=== PATIENT | female | born 1960 | race Caucasian/White ===

== ENCOUNTER 2017-07-03 05:56 | Emergency (ER) | payer MEDICAID ==
[~2017-07-03] VITALS: Ht 165.1 cm; Wt 51.3 kg
[~2017-07-03 05:56] MED LIST: ALBU8HFA PO; CLON-527 PO; CLON1TAB4 PO; DULO-31 PO; EPIN0.3P8 IM; FURO-150 PO; HYDR-3972 PO; HYDR-565 PO; IBUP-1984 PO; IBUP-1985 PO; LISI2.5T2 PO; POTA10TA36 PO; PRE5T PO; TRAZ-143 PO
[2017-07-03] MEDS ORDERED: HYDR-565 PO (06:16)
[2017-07-03] MEDS ORDERED: HYDROcodone/acetaminophen 10/325mg tab PO ONE (06:25)
[2017-07-03 06:30] VITALS: BP 118/85
== END 2017-07-03 06:40 | disposition home or self-care (01) ==
LOC: ER 05:58
DX: Z76.0 Encounter for issue of repeat prescription (principal); Z88.1 Allergy status to other antibiotic agents; Z88.8 Allergy status to other drugs, medicaments and biological substances; Z79.899 Other long term (current) drug therapy; I25.10 Atherosclerotic heart disease of native coronary artery without angina pectoris; I25.2 Old myocardial infarction; G89.29 Other chronic pain; Z59.0 Homelessness; Z56.0 Unemployment, unspecified
CPT/HCPCS: 99283

== ENCOUNTER 2017-07-29 07:22 | Emergency (ER) | payer MEDICAID ==
[~2017-07-29] VITALS: Ht 165.1 cm; Wt 53.6 kg
[2017-07-29] MEDS ORDERED: ONDA4TAB9 PO (08:09)
[2017-07-29] MEDS ORDERED: HYDR-3965 PO (08:09)
[2017-07-29] MEDS ORDERED: dexamethasone 4mg tablet PO ONE (08:10)
[2017-07-29 08:36] VITALS: BP 136/76
== END 2017-07-29 08:43 | disposition home or self-care (01) ==
LOC: ER 07:22
DX: G89.29 Other chronic pain (principal); M32.9 Systemic lupus erythematosus, unspecified; G35 Multiple sclerosis; I25.10 Atherosclerotic heart disease of native coronary artery without angina pectoris; I25.2 Old myocardial infarction; Z59.0 Homelessness; Z56.0 Unemployment, unspecified; Z98.890 Other specified postprocedural states; Z79.899 Other long term (current) drug therapy; Z88.1 Allergy status to other antibiotic agents; Z88.8 Allergy status to other drugs, medicaments and biological substances
CPT/HCPCS: 99283; J8540

== ENCOUNTER 2017-08-22 10:38 | Emergency (ER) | payer MEDICAID ==
[~2017-08-22] VITALS: Ht 165.1 cm; Wt 53.6 kg
[~2017-08-22 10:38] MED LIST changes: +HYDR-3965 PO; +ONDA4TAB9 PO
[2017-08-22 11:00] VITALS: BP 111/57
[2017-08-22] MEDS ORDERED: HYDROcodone/acetaminophen 10/325mg tab PO ONE (12:20)
[2017-08-22] MEDS ORDERED: triamcinolone acetonide 40mg/ml inj IM ONE (12:20)
[2017-08-22] MEDS ORDERED: GABA-532 PO (12:23)
== END 2017-08-22 12:44 | disposition home or self-care (01) ==
LOC: ER 10:39
DX: G89.4 Chronic pain syndrome (principal); I25.10 Atherosclerotic heart disease of native coronary artery without angina pectoris; I25.2 Old myocardial infarction; M32.9 Systemic lupus erythematosus, unspecified; Z59.0 Homelessness; Z56.0 Unemployment, unspecified; Z79.899 Other long term (current) drug therapy
CPT/HCPCS: 96372; 99283; J3301

== ENCOUNTER 2017-09-07 19:03 | Emergency (ER) | payer MEDICAID ==
[~2017-09-07] VITALS: Ht 165.1 cm; Wt 52.6 kg
[~2017-09-07 19:03] MED LIST changes: +GABA-532 PO; -HYDR-3965 PO; -ONDA4TAB9 PO
[2017-09-07 19:19] VITALS: BP 163/79
== END 2017-09-08 00:53 | disposition left against medical advice (07) ==
LOC: ER 19:04
DX: R22.0 Localized swelling, mass and lump, head (principal); Z53.21 Procedure and treatment not carried out due to patient leaving prior to being seen by health care provider

== ENCOUNTER 2017-09-15 13:15 | Emergency (ER) | payer MEDICAID ==
[~2017-09-15] VITALS: Ht 160 cm; Wt 50.6 kg
[2017-09-15 13:43] VITALS: BP 123/73
[2017-09-15 14:45] LABS: CLARITY,URINE SLIGHTLY CLOUDY (Clear); COLOR,URINE YELLOW (Yellow); GLUCOSE, URINE NEGATIVE (Neg); KETONES,URINE NEGATIVE (Neg); LEUKOCYTE ESTERASE ,URINE NEGATIVE (Neg); NITRITES, URINE NEGATIVE (Neg); OCCULT BLOOD,URINE NEGATIVE (Neg); PROTEIN,URINE NEGATIVE (Neg); UROBILINOGEN,URINE 0.2 E.U/dL (0.2-1.0)
[2017-09-15 14:53] LABS: UA COLLECTION TYPE CLN CATCH MIDSTREAM
[2017-09-15 14:59] LABS: MUCUS STRANDS NONE SEEN /LPF (Neg); SQUAMOUS EPITHELIAL CELL,UR MODERATE /LPF (FEW)
[2017-09-15 15:00] LABS: BACTERIA,URINE FEW /HPF (Neg); HYALINE CASTS 0-3 /LPF (NEGATIVE); RBC,URINE 0-2 /HPF (0-2); WBC,URINE 0-4 /HPF (0-4)
[2017-09-15 15:43] LABS: BASOPHILS % (AUTO) 0 % (0-1); EOSINOPHILS # (AUTO) 0.2 X10'3 (0-0.9); EOSINOPHILS % (AUTO) 2.1 % (0-6); HEMATOCRIT 38.8 % (35.0-45.0); HEMOGLOBIN 12.9 g/dl (12.0-16.0); LYMPHOCYTES # (AUTO) 0.7 X10'3 (1.1-4.8); LYMPHOCYTES % (AUTO) 8.7 % (21-51); MEAN CORPUSCULAR HEMOGLOBIN 26.6 PG (27.0-31.0); MEAN CORPUSCULAR HGB CONC 33.4 % (33.0-36.5); MEAN CORPUSCULAR VOLUME 79.7 FL (78-98); MEAN PLATELET VOLUME 8.6 FL (7.4-10.4); MONOCYTES # (AUTO) 0.3 X10'3 (0-0.9); MONOCYTES % (AUTO) 3.5 % (2-12); NEUTROPHILS # (AUTO) 6.7 X10'3 (1.8-7.7); NEUTROPHILS % (AUTO) 85.7 % (42-75); PLATELET COUNT 293 X10'3 (140-440); RED BLOOD COUNT 4.87 X10'6 (4.20-5.60); RED CELL DISTRIBUTION WIDTH 22.2 % (11.5-14.5); WHITE BLOOD COUNT 7.8 X10'3 (4.5-11.0)
[2017-09-15 15:58] LABS: ALANINE AMINOTRANSFERASE 14 U/L (12-78); ALBUMIN 3.9 G/DL (3.4-5.0); ALBUMIN/GLOBULIN RATIO 0.9 (1.1-1.5); ALKALINE PHOSPHATASE 88 IU/L (46-116); ANION GAP 12 (8-16); ASPARTATE AMINO TRANSFERASE 11 U/L (10-37); BILIRUBIN,TOTAL 0.2 MG/DL (0.1-1.0); BLOOD UREA NITROGEN 26 MG/DL (7-18); BUN/CREATININE RATIO 38.2 (6.6-38.0); CALCIUM 9.3 MG/DL (8.5-10.1); CHLORIDE 101 MMOL/L (99-107); CREATININE 0.68 MG/DL (0.40-0.90); GLUCOSE 151 MG/DL (70-104); POTASSIUM 3.9 MMOL/L (3.5-5.1); SODIUM 139 MMOL/L (135-145); TOTAL CARBON DIOXIDE 26.1 MMOL/L (24-32); TOTAL PROTEIN 8.3 G/DL (6.4-8.2); eGFR 90 ML/MIN
== END 2017-09-15 16:15 | disposition home or self-care (01) ==
LOC: ER 13:15
DX: R53.1 Weakness (principal); R59.9 Enlarged lymph nodes, unspecified; I25.10 Atherosclerotic heart disease of native coronary artery without angina pectoris; I25.2 Old myocardial infarction; G89.29 Other chronic pain; Z59.0 Homelessness; Z56.0 Unemployment, unspecified; Z88.8 Allergy status to other drugs, medicaments and biological substances; Z79.899 Other long term (current) drug therapy
CPT/HCPCS: 36415; 80053; 81001; 85025; 99284

== ENCOUNTER 2017-12-12 08:13 | Inpatient (IN) | payer MEDICAID ==
[~2017-12-12] VITALS: Ht 165.1 cm; Wt 52.3 kg
[~2017-12-12 08:13] MED LIST changes: -CLON1TAB4 PO; +DIPH25CA46 PO; -FURO-150 PO; -GABA-532 PO; +HYDR-3964 PO; -HYDR-3972 PO; +HYDR-3973 PO; -HYDR-565 PO; -IBUP-1984 PO; -IBUP-1985 PO; -LISI2.5T2 PO; +ONDA4TAB11 PO; -PRE5T PO; +PROP40TA72 PO; -TRAZ-143 PO
[2017-12-12 09:06] LABS: BASOPHILS % (AUTO) 0.8 % (0-1); EOSINOPHILS # (AUTO) 0.1 X10'3 (0-0.9); EOSINOPHILS % (AUTO) 3.4 % (0-6); HEMATOCRIT 37.3 % (35.0-45.0); HEMOGLOBIN 12.4 g/dl (12.0-16.0); LYMPHOCYTES # (AUTO) 0.4 X10'3 (1.1-4.8); LYMPHOCYTES % (AUTO) 9.4 % (21-51); MEAN CORPUSCULAR HEMOGLOBIN 27.6 PG (27.0-31.0); MEAN CORPUSCULAR HGB CONC 33.3 % (33.0-36.5); MEAN CORPUSCULAR VOLUME 83.1 FL (78-98); MEAN PLATELET VOLUME 8.3 FL (7.4-10.4); MONOCYTES # (AUTO) 0.4 X10'3 (0-0.9); MONOCYTES % (AUTO) 9.6 % (2-12); NEUTROPHILS # (AUTO) 3.3 X10'3 (1.8-7.7); NEUTROPHILS % (AUTO) 76.8 % (42-75); PLATELET COUNT 320 X10'3 (140-440); RED BLOOD COUNT 4.49 X10'6 (4.20-5.60); WHITE BLOOD COUNT 4.3 X10'3 (4.5-11.0)
[2017-12-12 09:16] LABS: PARTIAL THROMBOPLASTIN TIME 29 SECONDS (22-32); PROTHROMBIN TIME 10.7 SECONDS (9.0-12.0)
[2017-12-12] MEDS ORDERED: normal saline 1000ML IV soln IV ONE (09:25)
[2017-12-12] MEDS ORDERED: CefTRIAXone 2gm/D5W 50ml 50 ML IV ONE (09:25)
[2017-12-12] MEDS ORDERED: azithromycin 250mg tablet PO ONE (09:25)
[2017-12-12 09:27] LABS: ALANINE AMINOTRANSFERASE 12 U/L (12-78); ALBUMIN 3.4 G/DL (3.4-5.0); ALBUMIN/GLOBULIN RATIO 0.7 (1.1-1.5); ALKALINE PHOSPHATASE 67 IU/L (46-116); ANION GAP 14 (8-16); ASPARTATE AMINO TRANSFERASE 14 U/L (10-37); BILIRUBIN,TOTAL 0.3 MG/DL (0.1-1.0); BLOOD UREA NITROGEN 11 MG/DL (7-18); BUN/CREATININE RATIO 14.5 (6.6-38.0); CALCIUM 9.2 MG/DL (8.5-10.1); CHLORIDE 102 MMOL/L (99-107); CREATININE 0.76 MG/DL (0.40-0.90); GLUCOSE 81 MG/DL (70-104); POTASSIUM 2.9 MMOL/L (3.5-5.1); SODIUM 142 MMOL/L (135-145); TOTAL PROTEIN 8.4 G/DL (6.4-8.2); eGFR 79 ML/MIN
[2017-12-12] MEDS ORDERED: LISI-600 PO (11:07)
[2017-12-12] MEDS ORDERED: TRAZ-143 PO (11:08)
[2017-12-12] MEDS ORDERED: ondansetron 4mg rapidly disintigrating tab PO PRN (11:30)
[2017-12-12] MEDS ORDERED: metoclopramide 5 mg/ml inj IV PRN (11:35)
[2017-12-12] MEDS ORDERED: potassium Cl 40MEQ/NS 500ml 500 ML IV PRN ×2 (11:35)
[2017-12-12] MEDS ORDERED: acetaminophen 650mg rectal suppository RC PRN (11:35)
[2017-12-12] MEDS ORDERED: mag hydrox/Alum hydrox/simeth 30ml oral suspension PO PRN (11:35)
[2017-12-12] MEDS ORDERED: magnesium hydroxide 30ml (MOM) UD suspension PO PRN (11:35)
[2017-12-12] MEDS ORDERED: ondansetron/PF 4mg/2ml inj IV PRN (11:35)
[2017-12-12] MEDS ORDERED: morphine 4 MG/ML inj SYRINge IV PRN ×2 (11:35)
[2017-12-12] MEDS ORDERED: HYDROmorphone inj. 0.5 MG/0.5 ML DISP.SYRIN IV PRN ×2 (11:35)
[2017-12-12] MEDS ORDERED: diphenhydrAMINE 50 mg/ml inj IV PRN (11:35)
[2017-12-12] MEDS ORDERED: potassium Cl 20 mEq SR tablet PO PRN (11:35)
[2017-12-12] MEDS ORDERED: HYDROcodone/acetaminophen 5mg/325mg tablet PO PRN (11:35)
[2017-12-12] MEDS ORDERED: acetaminophen 325mg tablet PO PRN (11:35)
[2017-12-12] MEDS ORDERED: diphenhydrAMINE 25mg capsule PO PRN (11:35)
[2017-12-12] MEDS: HYDROcodone/acetaminophen 10/325mg tab PO PRN ×3 (11:56→20:10)
[2017-12-12] MEDS: potassium Cl 20 mEq SR tablet PO PRN ×3 (11:57→20:10)
[2017-12-12] MEDS: normal saline 1000ml 1,000 ML IV SCH (12:10)
[2017-12-12 12:12] LABS: PHOSPHORUS 3.6 MG/DL (2.3-4.5)
[2017-12-12 12:19] LABS: URINE AMPHETAMINE SCREEN NEGATIVE (Neg); URINE BARBITUATE SCREEN NEGATIVE (Neg); URINE BENZODIAZEPINES SCREEN NEGATIVE (Neg); URINE CANNABINOID SCREEN NEGATIVE (Neg); URINE COCAINE SCREEN NEGATIVE (Neg); URINE METHADONE SCREEN NEGATIVE (Neg); URINE OPIATE SCREEN NEGATIVE (Neg); URINE PHENCYCLIDINE SCREEN NEGATIVE (Neg)
[2017-12-12 13:45] VITALS: BP 122/73
[2017-12-12 18:00] VITALS: BP 119/68
[2017-12-12] MEDS: propranolol 40mg tablet PO SCH (19:20)
[2017-12-12] MEDS: heparin, porcine 5000 units/ml vial SQ SCH (19:20)
[2017-12-12] MEDS: methylPREDNISolone sod succ 125mg/2ml vial IV SCH (19:21)
[2017-12-12] MEDS: docusate sod 100mg capsule PO SCH (19:21)
[2017-12-12] MEDS: CefTRIAXone/D5W-Rocephin 1gm 50 ML IV SCH (19:28)
[2017-12-12] MEDS: diphenhydrAMINE 25mg capsule PO SCH (20:08)
[2017-12-12] MEDS: traZODone 50mg tablet PO SCH (20:10)
[2017-12-12] MEDS ORDERED: temazepam 15mg capsule PO PRN (21:00)
[2017-12-12 22:00] VITALS: BP 117/58
[2017-12-13] MEDS: HYDROcodone/acetaminophen 10/325mg tab PO PRN ×5 (00:08→19:16)
[2017-12-13 06:00] VITALS: BP 121/58
[2017-12-13 06:50] LABS: BASOPHILS % (AUTO) 0.1 % (0-1); EOSINOPHILS % (AUTO) 0.8 % (0-6); HEMATOCRIT 29.4 % (35.0-45.0); HEMOGLOBIN 9.7 g/dl (12.0-16.0); LYMPHOCYTES # (AUTO) 0.3 X10'3 (1.1-4.8); LYMPHOCYTES % (AUTO) 17.8 % (21-51); MEAN CORPUSCULAR HEMOGLOBIN 27.6 PG (27.0-31.0); MEAN CORPUSCULAR HGB CONC 33.1 % (33.0-36.5); MEAN CORPUSCULAR VOLUME 83.3 FL (78-98); MEAN PLATELET VOLUME 8.5 FL (7.4-10.4); MONOCYTES # (AUTO) 0.1 X10'3 (0-0.9); MONOCYTES % (AUTO) 3.2 % (2-12); NEUTROPHILS # (AUTO) 1.4 X10'3 (1.8-7.7); NEUTROPHILS % (AUTO) 78.1 % (42-75); PLATELET COUNT 263 X10'3 (140-440); RED BLOOD COUNT 3.53 X10'6 (4.20-5.60); RED CELL DISTRIBUTION WIDTH 16.6 % (11.5-14.5); WHITE BLOOD COUNT 1.8 X10'3 (4.5-11.0)
[2017-12-13 07:07] LABS: ALANINE AMINOTRANSFERASE 14 U/L (12-78); ALBUMIN 2.7 G/DL (3.4-5.0); ALBUMIN/GLOBULIN RATIO 0.6 (1.1-1.5); ALKALINE PHOSPHATASE 53 IU/L (46-116); ANION GAP 8 (8-16); ASPARTATE AMINO TRANSFERASE 11 U/L (10-37); BILIRUBIN,TOTAL 0.1 MG/DL (0.1-1.0); BLOOD UREA NITROGEN 8 MG/DL (7-18); BUN/CREATININE RATIO 12.5 (6.6-38.0); CALCIUM 8.9 MG/DL (8.5-10.1); CHLORIDE 106 MMOL/L (99-107); CREATININE 0.64 MG/DL (0.40-0.90); GLUCOSE 113 MG/DL (70-104); POTASSIUM 4.5 MMOL/L (3.5-5.1); SODIUM 138 MMOL/L (135-145); TOTAL PROTEIN 6.9 G/DL (6.4-8.2); eGFR > 90 ML/MIN
[2017-12-13 07:11] LABS: NUCLEATED RED BLOOD CELLS 1 /100WBC (0-0); TOTAL CELLS COUNTED 100
[2017-12-13 07:12] LABS: ANISOCYTOSIS 1+; PLATELET ESTIMATE NORMAL
[2017-12-13] MEDS: docusate sod 100mg capsule PO SCH ×2 (07:14→19:17)
[2017-12-13] MEDS: propranolol 40mg tablet PO SCH ×2 (07:14→19:16)
[2017-12-13] MEDS: duloxetine 30mg CAPSULE.DR PO SCH (07:15)
[2017-12-13] MEDS: lisinopril 20mg tablet PO SCH (07:15)
[2017-12-13] MEDS: azithromycin 250mg tablet PO SCH (07:16)
[2017-12-13] MEDS: nicotine 21mg patch - 24 hr TD SCH (07:18)
[2017-12-13] MEDS: heparin, porcine 5000 units/ml vial SQ SCH ×2 (07:19→19:15)
[2017-12-13] MEDS: methylPREDNISolone sod succ 125mg/2ml vial IV SCH ×2 (07:20→19:16)
[2017-12-13] MEDS: CefTRIAXone/D5W-Rocephin 1gm 50 ML IV SCH (07:21)
[2017-12-13] MEDS: normal saline 1000ml 1,000 ML IV SCH ×2 (07:26→07:31)
[2017-12-13] MEDS: pantoprazole 40mg Tablet.DR PO SCH (07:30)
[2017-12-13] MEDS: K and/or MAG REPLACEMENT MC SCH (07:37)
[2017-12-13 11:00] VITALS: BP 134/59
[2017-12-13 18:00] VITALS: BP 141/68
[2017-12-13] MEDS: diphenhydrAMINE 25mg capsule PO SCH (19:16)
[2017-12-13] MEDS: traZODone 50mg tablet PO SCH (21:43)
[2017-12-13 22:00] VITALS: BP 138/58
[2017-12-14] MEDS: normal saline 1000ml 1,000 ML IV SCH ×3 (03:05→13:31)
[2017-12-14 06:00] VITALS: BP 160/74
[2017-12-14 06:03] LABS: BASOPHILS % (AUTO) 0.1 % (0-1); HEMATOCRIT 27.8 % (35.0-45.0); HEMOGLOBIN 9.1 g/dl (12.0-16.0); LYMPHOCYTES # (AUTO) 0.4 X10'3 (1.1-4.8); LYMPHOCYTES % (AUTO) 16.6 % (21-51); MEAN CORPUSCULAR HEMOGLOBIN 27.5 PG (27.0-31.0); MEAN CORPUSCULAR HGB CONC 32.7 % (33.0-36.5); MEAN CORPUSCULAR VOLUME 84.1 FL (78-98); MEAN PLATELET VOLUME 8.8 FL (7.4-10.4); MONOCYTES # (AUTO) 0.1 X10'3 (0-0.9); NEUTROPHILS # (AUTO) 1.7 X10'3 (1.8-7.7); NEUTROPHILS % (AUTO) 76.3 % (42-75); PLATELET COUNT 318 X10'3 (140-440); RED CELL DISTRIBUTION WIDTH 16.7 % (11.5-14.5); WHITE BLOOD COUNT 2.3 X10'3 (4.5-11.0)
[2017-12-14 06:24] LABS: ALANINE AMINOTRANSFERASE 13 U/L (12-78); ALBUMIN 2.8 G/DL (3.4-5.0); ALBUMIN/GLOBULIN RATIO 0.7 (1.1-1.5); ALKALINE PHOSPHATASE 50 IU/L (46-116); ANION GAP 8 (8-16); ASPARTATE AMINO TRANSFERASE 14 U/L (10-37); BILIRUBIN,TOTAL 0.1 MG/DL (0.1-1.0); BLOOD UREA NITROGEN 8 MG/DL (7-18); BUN/CREATININE RATIO 11.6 (6.6-38.0); CALCIUM 8.9 MG/DL (8.5-10.1); CHLORIDE 107 MMOL/L (99-107); CREATININE 0.69 MG/DL (0.40-0.90); GLUCOSE 127 MG/DL (70-104); POTASSIUM 3.6 MMOL/L (3.5-5.1); SODIUM 141 MMOL/L (135-145); eGFR 88 ML/MIN
[2017-12-14 07:10] LABS: ANISOCYTOSIS 2+; PLATELET ESTIMATE NORMAL; TOTAL CELLS COUNTED 50
[2017-12-14] MEDS: propranolol 40mg tablet PO SCH (07:23)
[2017-12-14] MEDS: duloxetine 30mg CAPSULE.DR PO SCH (07:23)
[2017-12-14] MEDS: nicotine 21mg patch - 24 hr TD SCH (07:23)
[2017-12-14] MEDS: azithromycin 250mg tablet PO SCH (07:24)
[2017-12-14] MEDS: heparin, porcine 5000 units/ml vial SQ SCH (07:24)
[2017-12-14] MEDS: pantoprazole 40mg Tablet.DR PO SCH (07:24)
[2017-12-14] MEDS: lisinopril 20mg tablet PO SCH (07:24)
[2017-12-14] MEDS: HYDROcodone/acetaminophen 10/325mg tab PO PRN ×2 (07:29→11:28)
[2017-12-14] MEDS: docusate sod 100mg capsule PO SCH (07:55)
[2017-12-14] MEDS: K and/or MAG REPLACEMENT MC SCH (07:55)
[2017-12-14] MEDS ORDERED: CefTRIAXone/D5W-Rocephin 1gm 50 ML IV SCH (08:00)
[2017-12-14] MEDS: methylPREDNISolone sod succ 125mg/2ml vial IV SCH (08:47)
[2017-12-14 10:00] VITALS: BP 146/68
[2017-12-14] MEDS ORDERED: AMOX-580 PO ×2 (12:54→12:56)
[2017-12-14] MEDS ORDERED: PRED10TA23 PO (12:54)
[2017-12-14] MEDS ORDERED: ALBU6.7H INH (12:54)
[2017-12-14] MEDS ORDERED: PANT40TA4 PO (12:54)
== END 2017-12-14 14:35 | disposition home or self-care (01) | DRG 720 ==
LOC: ER 08:13 → ED HOLD 11:31 → ORTHO 4S 13:50
PROVIDERS: ADMIT Family Medicine; ATTEND Internal Medicine
DX: A41.9 Sepsis, unspecified organism (principal); J18.9 Pneumonia, unspecified organism; J44.0 Chronic obstructive pulmonary disease with (acute) lower respiratory infection; I10 Essential (primary) hypertension; E11.9 Type 2 diabetes mellitus without complications; D64.9 Anemia, unspecified; J44.1 Chronic obstructive pulmonary disease with (acute) exacerbation; G35 Multiple sclerosis; E86.0 Dehydration; E87.6 Hypokalemia; F17.210 Nicotine dependence, cigarettes, uncomplicated; G25.0 Essential tremor; I25.10 Atherosclerotic heart disease of native coronary artery without angina pectoris; I25.2 Old myocardial infarction; Z59.0 Homelessness; Z80.1 Family history of malignant neoplasm of trachea, bronchus and lung; Z80.3 Family history of malignant neoplasm of breast; Z71.6 Tobacco abuse counseling
CPT/HCPCS: 36415; 71045; 80053; 80305; 83735; 83880; 84100; 84484; 85025; 85610; 85730; 87070; 96365; 99285; J0696; J1644; J2405; J2930; J7030; Q0163

== ENCOUNTER 2018-03-12 08:31 | Emergency (ER) | payer MEDICAID ==
[~2018-03-12] VITALS: Ht 165.1 cm; Wt 44.9 kg
[~2018-03-12 08:31] MED LIST changes: +ALBU6.7H INH; -ALBU8HFA PO; +AMOX-580 PO; -CLON-527 PO; -EPIN0.3P8 IM; -HYDR-3964 PO; +LISI-600 PO; +PANT40TA4 PO; +TRAZ-218 PO
[2018-03-12 08:36] VITALS: BP 109/61
[2018-03-12] MEDS ORDERED: HYDROcodone/acetaminophen 5mg/325mg tablet PO ONE (08:50)
== END 2018-03-12 09:44 | disposition home or self-care (01) ==
LOC: ER 08:32
DX: G89.29 Other chronic pain (principal); I25.10 Atherosclerotic heart disease of native coronary artery without angina pectoris; I25.2 Old myocardial infarction; Z59.0 Homelessness; Z56.0 Unemployment, unspecified; Z88.8 Allergy status to other drugs, medicaments and biological substances; Z79.2 Long term (current) use of antibiotics; Z79.899 Other long term (current) drug therapy
CPT/HCPCS: 99281

== ENCOUNTER 2018-05-18 14:00 | Inpatient (IN) | payer MEDICAID ==
[~2018-05-18] VITALS: Ht 165.1 cm; Wt 53.8 kg
[2018-05-18] MEDS ORDERED: diphenhydrAMINE 50 mg/ml inj IV ONE (14:25)
[2018-05-18] MEDS ORDERED: normal saline 1000ML IV soln IVB ONE ×2 (14:25→16:00)
[2018-05-18] MEDS ORDERED: metoclopramide 5 mg/ml inj IV ONE (14:25)
[2018-05-18] MEDS ORDERED: HYDROmorphone 1 mg/ml syringe IV ONE (14:35)
--- NOTE | 2018-05-18 14:50 | NUR ---
TO CT SCAN
[2018-05-18 15:06] LABS: BASOPHILS % (AUTO) 0.2 % (0-1); EOSINOPHILS # (AUTO) 0.1 X10'3 (0-0.9); EOSINOPHILS % (AUTO) 0.6 % (0-6); HEMATOCRIT 37.4 % (35.0-45.0); HEMOGLOBIN 12.1 g/dl (12.0-16.0); LYMPHOCYTES # (AUTO) 0.3 X10'3 (1.1-4.8); LYMPHOCYTES % (AUTO) 2.7 % (21-51); MEAN CORPUSCULAR HEMOGLOBIN 26.8 PG (27.0-31.0); MEAN CORPUSCULAR HGB CONC 32.2 % (33.0-36.5); MEAN PLATELET VOLUME 8.4 FL (7.4-10.4); MONOCYTES # (AUTO) 0.2 X10'3 (0-0.9); MONOCYTES % (AUTO) 1.8 % (2-12); NEUTROPHILS # (AUTO) 12.3 X10'3 (1.8-7.7); NEUTROPHILS % (AUTO) 94.7 % (42-75); PLATELET COUNT 281 X10'3 (140-440); RED BLOOD COUNT 4.51 X10'6 (4.20-5.60); RED CELL DISTRIBUTION WIDTH 14.8 % (11.5-14.5); WHITE BLOOD COUNT 12.9 X10'3 (4.5-11.0)
[2018-05-18 15:17] LABS: ALANINE AMINOTRANSFERASE 16 U/L (12-78); ALBUMIN 3.3 G/DL (3.4-5.0); ALBUMIN/GLOBULIN RATIO 0.7 (1.1-1.5); ALKALINE PHOSPHATASE 71 IU/L (46-116); ANION GAP 14 (8-16); ASPARTATE AMINO TRANSFERASE 13 U/L (10-37); BILIRUBIN,TOTAL 0.4 MG/DL (0.1-1.0); BLOOD UREA NITROGEN 32 MG/DL (7-18); BUN/CREATININE RATIO 32.7 (6.6-38.0); CALCIUM 8.9 MG/DL (8.5-10.1); CHLORIDE 100 MMOL/L (99-107); CREATININE 0.98 MG/DL (0.40-0.90); GLUCOSE 93 MG/DL (70-104); POTASSIUM 3.6 MMOL/L (3.5-5.1); SODIUM 136 MMOL/L (135-145); TOTAL CARBON DIOXIDE 21.7 MMOL/L (24-32); TOTAL PROTEIN 7.8 G/DL (6.4-8.2); eGFR 58 ML/MIN
[2018-05-18 15:22] LABS: LIPASE 75 U/L (73-393); MAGNESIUM 1.3 MG/DL (1.5-2.4)
[2018-05-18] MEDS ORDERED: DOXY100C43 PO (15:45)
[2018-05-18] MEDS ORDERED: ONDA4TAB12 PO (15:45)
[2018-05-18] MEDS ORDERED: TAM75C PO (15:47)
[2018-05-18] MEDS ORDERED: DOXYCYCLINE 100MG CAPSULE PO STA (15:48)
[2018-05-18] MEDS ORDERED: CefTRIAXone 2gm/D5W 50ml 50 ML IV ONE (15:55)
[2018-05-18] MEDS ORDERED: azithromycin/NS 500mg/250ml 250 ML IV ONE (15:55)
[2018-05-18 16:06] LABS: PLATELET ESTIMATE NORMAL; TOTAL CELLS COUNTED 100
[2018-05-18] MEDS: normal saline 1000ml 1,000 ML IV SCH (16:07)
[2018-05-18 16:09] LABS: CLARITY,URINE CLEAR (Clear); COLOR,URINE YELLOW (Yellow); GLUCOSE, URINE NEGATIVE (Neg); KETONES,URINE TRACE mg/dl (Neg); LEUKOCYTE ESTERASE ,URINE NEGATIVE (Neg); NITRITES, URINE NEGATIVE (Neg); OCCULT BLOOD,URINE NEGATIVE (Neg); PROTEIN,URINE 30 mg/dl (Neg); UROBILINOGEN,URINE 0.2 E.U/dL (0.2-1.0)
[2018-05-18] MEDS ORDERED: magnesium hydroxide 30ml (MOM) UD suspension PO PRN (16:10)
[2018-05-18 16:11] LABS: UA COLLECTION TYPE STRAIGHT CATH
[2018-05-18 16:14] LABS: SQUAMOUS EPITHELIAL CELL,UR FEW /LPF (FEW)
[2018-05-18 16:15] LABS: BACTERIA,URINE FEW /HPF (Neg); RBC,URINE 0-2 /HPF (0-2); WBC,URINE 0-4 /HPF (0-4)
[2018-05-18 17:30] VITALS: BP 93/62
--- NOTE | 2018-05-18 17:30 | NUR ---
Pt. arrived to unit via gurney in stable condition. Vitals taken and monitor placed. Pt oriented to room. Belongings put in closet, will continue to monitor.
[2018-05-18 17:42] LABS: INR 1.1 INR; PROTHROMBIN TIME 10.7 SECONDS (9.0-12.0)
[2018-05-18 18:00] VITALS: BP 93/62
--- NOTE | 2018-05-18 18:37 | NUR ---
PAGER ID: [phone] MESSAGE: David HAN [phone] Juan. Pt. complaining of 10/10 pain and she has no pain meds ordered. Pt. HR is between the 130s and 150s. Please advise?
--- NOTE | 2018-05-18 19:01 | NUR ---
paged Dr. Carmichael PAGER ID: [phone] MESSAGE: rm [phone] Marina Martinez critical 2HR lactic 6.6. HR in 140s/150s. please advise. Thank you Erick HAN ext [phone]
--- NOTE | 2018-05-18 19:08 | NUR ---
received call from Dr. Carmichael. no new orders received. will continue to monitor.
[2018-05-18] MEDS: morphine 4 MG/ML inj SYRINge IV PRN (19:42)
[2018-05-18] MEDS: metroNIDAZOLE-Flagyl 500mg/NS 100 ML IV SCH (19:42)
[2018-05-18] MEDS: heparin, porcine 5000 units/ml vial SQ SCH (19:42)
[2018-05-18] MEDS: diatr meglu/diatrizoate 30ml oral sol.-(3 dose) bottle PO SCH (21:00)
[2018-05-18 22:00] VITALS: BP 98/45
--- NOTE | 2018-05-18 22:23 | NUR ---
pt's HR still elevated in 150s. giving pt 250mL bolus. will continue to monitor
[2018-05-18] MEDS: acetaminophen 325mg tablet PO PRN (23:49)
[2018-05-19] VITALS (7 sets, daily range): BP systolic 84–100; BP diastolic 49–70
[2018-05-19] MEDS: morphine 4 MG/ML inj SYRINge IV PRN ×2 (02:30→09:19)
[2018-05-19] MEDS: normal saline 1000ml 1,000 ML IV SCH ×3 (02:30→22:07)
--- NOTE | 2018-05-19 03:45 | NUR ---
PAGER ID: [phone] MESSAGE: rm [phone], Marina Martinez. pt's SBP is in the low 80s with a MAP in the 50s. pt's HR remains elevated in the 140s. please advise. thank you Erick HAN ext [phone]
[2018-05-19] MEDS ORDERED: normal saline 1000ml 1,000 ML IVB ONE (03:49)
[2018-05-19] MEDS ORDERED: normal saline 500ml IV soln 1,000 ML IV ONE (03:55)
--- NOTE | 2018-05-19 06:27 | NUR ---
Problems reprioritized. Patient report given, questions answered & plan of care reviewed with Aria HAN.
[2018-05-19 06:39] LABS: BASOPHILS % (AUTO) 0.1 % (0-1); EOSINOPHILS % (AUTO) 0.1 % (0-6); HEMATOCRIT 29.5 % (35.0-45.0); HEMOGLOBIN 9.6 g/dl (12.0-16.0); LYMPHOCYTES # (AUTO) 0.5 X10'3 (1.1-4.8); MEAN CORPUSCULAR HEMOGLOBIN 27.3 PG (27.0-31.0); MEAN CORPUSCULAR HGB CONC 32.6 % (33.0-36.5); MEAN CORPUSCULAR VOLUME 83.6 FL (78-98); MEAN PLATELET VOLUME 8.7 FL (7.4-10.4); MONOCYTES # (AUTO) 0.2 X10'3 (0-0.9); MONOCYTES % (AUTO) 1.1 % (2-12); NEUTROPHILS # (AUTO) 16.6 X10'3 (1.8-7.7); NEUTROPHILS % (AUTO) 95.7 % (42-75); PLATELET COUNT 199 X10'3 (140-440); RED BLOOD COUNT 3.52 X10'6 (4.20-5.60); RED CELL DISTRIBUTION WIDTH 15.3 % (11.5-14.5); WHITE BLOOD COUNT 17.3 X10'3 (4.5-11.0)
[2018-05-19 06:52] LABS: ALBUMIN 2.4 G/DL (3.4-5.0); ANION GAP 16 (8-16); BLOOD UREA NITROGEN 30 MG/DL (7-18); BUN/CREATININE RATIO 26.1 (6.6-38.0); CALCIUM 7.1 MG/DL (8.5-10.1); CHLORIDE 104 MMOL/L (99-107); CREATININE 1.15 MG/DL (0.40-0.90); GLUCOSE 70 MG/DL (70-104); POTASSIUM 3.2 MMOL/L (3.5-5.1); SODIUM 138 MMOL/L (135-145); TOTAL CARBON DIOXIDE 17.9 MMOL/L (24-32); eGFR 49 ML/MIN
[2018-05-19] MEDS: diatr meglu/diatrizoate 30ml oral sol.-(3 dose) bottle PO SCH ×2 (07:22→09:19)
[2018-05-19] MEDS: heparin, porcine 5000 units/ml vial SQ SCH ×2 (07:23→20:05)
[2018-05-19] MEDS: azithromycin/NS 500mg/250ml 250 ML IV SCH (07:24)
[2018-05-19] MEDS: metroNIDAZOLE-Flagyl 500mg/NS 100 ML IV SCH (07:26)
[2018-05-19] MEDS: pantoprazole 40 MG vial IV SCH (07:26)
[2018-05-19] MEDS ORDERED: CefTRIAXone 2gm/D5W 50ml 50 ML IV SCH (08:00)
[2018-05-19] MEDS ORDERED: iohexol 350MG/ML 100ml bottle IV ONE (09:21)
[2018-05-19] MEDS ORDERED: potassium Cl 20 mEq SR tablet PO PRN ×2 (09:35)
[2018-05-19] MEDS ORDERED: magnesium 4gm in 100ml NS 100 ML IV PRN (09:35)
[2018-05-19] MEDS ORDERED: potassium Cl 40MEQ/NS 500ml 500 ML IV PRN ×2 (09:35)
--- NOTE | 2018-05-19 10:27 | NUR ---
PT BACK TO UNIT IN STABLE CONDITION, WILL CONTINUE TO MONITOR.
[2018-05-19] MEDS: cefepime 2g/NS 100ml ADVANTAGE 100 ML IV SCH ×2 (10:49→20:04)
[2018-05-19 11:25] LABS: MAGNESIUM 1.2 MG/DL (1.5-2.4)
--- NOTE | 2018-05-19 11:35 | NUR ---
PAGER ID: [phone] MESSAGE: Bessie HAN, [phone] [facility], wanted to let you know pt. K+ of 3.0 will replace per protocol.
[2018-05-19] MEDS: HYDROcodone/acetaminophen 10/325mg tab PO PRN ×2 (13:02→20:12)
[2018-05-19] MEDS: potassium Cl oral solution 20 MEQ/15 ML PO PRN ×3 (13:02→21:30)
--- NOTE | 2018-05-19 13:09 | NUR ---
PAGER ID: [phone] MESSAGE: Aria [phone] Juan Pt. has had 3 watery stools. I took a sample would you like me to send it to the lab for testing? Thank you
[2018-05-19] MEDS: ondansetron/PF 4mg/2ml inj IV PRN (16:45)
[2018-05-19] MEDS: magnesium Cl slow-release 64mg tablet PO PRN (20:05)
--- NOTE | 2018-05-20 01:27 | NUR ---
paged Dr. Ledezma PAGER ID: [phone] MESSAGE: [phone] Marina Martinez. HR has sustained in the 140s. Sinus tach. please advise. thank you Erick HAN ext [phone]
--- NOTE | 2018-05-20 01:30 | NUR ---
aware of HR. no new orders received
[2018-05-20 02:00] VITALS: BP 95/61
[2018-05-20 06:00] VITALS: BP 112/65
[2018-05-20] MEDS: ondansetron/PF 4mg/2ml inj IV PRN (06:33)
--- NOTE | 2018-05-20 06:33 | NUR ---
Problems reprioritized. Patient report given, questions answered & plan of care reviewed with Aria HAN.
[2018-05-20] MEDS: HYDROcodone/acetaminophen 10/325mg tab PO PRN ×3 (06:34→19:31)
[2018-05-20 07:04] LABS: BASOPHILS % (AUTO) 0 % (0-1); EOSINOPHILS % (AUTO) 0.1 % (0-6); HEMATOCRIT 27.3 % (35.0-45.0); HEMOGLOBIN 8.8 g/dl (12.0-16.0); LYMPHOCYTES # (AUTO) 0.3 X10'3 (1.1-4.8); LYMPHOCYTES % (AUTO) 1.8 % (21-51); MEAN CORPUSCULAR HEMOGLOBIN 26.7 PG (27.0-31.0); MEAN CORPUSCULAR VOLUME 83.2 FL (78-98); MEAN PLATELET VOLUME 8.8 FL (7.4-10.4); MONOCYTES # (AUTO) 0.3 X10'3 (0-0.9); MONOCYTES % (AUTO) 1.5 % (2-12); NEUTROPHILS # (AUTO) 16.8 X10'3 (1.8-7.7); NEUTROPHILS % (AUTO) 96.6 % (42-75); PLATELET COUNT 180 X10'3 (140-440); RED BLOOD COUNT 3.28 X10'6 (4.20-5.60); RED CELL DISTRIBUTION WIDTH 16.4 % (11.5-14.5); WHITE BLOOD COUNT 17.3 X10'3 (4.5-11.0)
[2018-05-20 07:11] LABS: ALBUMIN 2.2 G/DL (3.4-5.0); ANION GAP 11 (8-16); BLOOD UREA NITROGEN 13 MG/DL (7-18); BUN/CREATININE RATIO 17.8 (6.6-38.0); CALCIUM 7.9 MG/DL (8.5-10.1); CHLORIDE 107 MMOL/L (99-107); CREATININE 0.73 MG/DL (0.40-0.90); GLUCOSE 80 MG/DL (70-104); MAGNESIUM 1.6 MG/DL (1.5-2.4); POTASSIUM 3.5 MMOL/L (3.5-5.1); SODIUM 139 MMOL/L (135-145); TOTAL CARBON DIOXIDE 20.7 MMOL/L (24-32); eGFR 82 ML/MIN
[2018-05-20] MEDS: azithromycin/NS 500mg/250ml 250 ML IV SCH (07:58)
[2018-05-20] MEDS: cefepime 2g/NS 100ml ADVANTAGE 100 ML IV SCH ×2 (07:58→19:30)
[2018-05-20] MEDS: lactobacillus rhamnosus 10,000 MMU CELLS/CAPSULE PO SCH (07:58)
[2018-05-20] MEDS: pantoprazole 40 MG vial IV SCH (07:59)
[2018-05-20] MEDS: heparin, porcine 5000 units/ml vial SQ SCH ×2 (08:06→19:42)
[2018-05-20] MEDS: normal saline 1000ml 1,000 ML IV SCH ×2 (08:07→18:38)
[2018-05-20 11:00] VITALS: BP 101/75
--- NOTE | 2018-05-20 12:34 | NUR ---
Christiano consult: Although patient's BMI is on the lower end of appropriate, pt's current wt is stable with documented wt from previous visits. Pt with no documented edema or severe decrease in muscle strength. Per physical assessment pt A/O x2, reported wt loss likely inaccurate. Pt currently does not meet criteria for malnutrition. Will continue to follow and monitor need for ONS. Addendum: 05/20/18 at [address] Amended: Links added.
[2018-05-20 15:00] VITALS: BP 110/69
[2018-05-20 18:00] VITALS: BP 136/92
--- NOTE | 2018-05-20 18:34 | NUR ---
Patient in room PCU 3009. I have received report from Aria HAN and had the opportunity to ask questions and assume patient care.
[2018-05-20 22:00] VITALS: BP 135/88
--- NOTE | 2018-05-20 22:45 | NUR ---
notified MD about HR sustaining in the 150s. orders received
[2018-05-20] MEDS: metoprolol tartrate 25mg tablet PO SCH (23:22)
[2018-05-21] MEDS: HYDROcodone/acetaminophen 10/325mg tab PO PRN (00:53)
[2018-05-21 02:00] VITALS: BP 114/77
[2018-05-21] MEDS: normal saline 1000ml 1,000 ML IV SCH ×3 (04:07→16:32)
[2018-05-21 06:00] VITALS: BP 118/79
[2018-05-21 06:08] LABS: ALBUMIN 2.3 G/DL (3.4-5.0); ANION GAP 13 (8-16); BLOOD UREA NITROGEN 9 MG/DL (7-18); BUN/CREATININE RATIO 12.9 (6.6-38.0); CALCIUM 7.9 MG/DL (8.5-10.1); CHLORIDE 103 MMOL/L (99-107); GLUCOSE 62 MG/DL (70-104); MAGNESIUM 1.6 MG/DL (1.5-2.4); SODIUM 137 MMOL/L (135-145); TOTAL CARBON DIOXIDE 21.2 MMOL/L (24-32); eGFR 86 ML/MIN
--- NOTE | 2018-05-21 06:19 | NUR ---
Problems reprioritized. Patient report given, questions answered & plan of care reviewed with Jeanette HAN.
[2018-05-21 06:21] LABS: BASOPHILS % (AUTO) 0.1 % (0-1); EOSINOPHILS % (AUTO) 0.1 % (0-6); HEMATOCRIT 26.9 % (35.0-45.0); HEMOGLOBIN 8.6 g/dl (12.0-16.0); LYMPHOCYTES # (AUTO) 0.6 X10'3 (1.1-4.8); MEAN CORPUSCULAR HEMOGLOBIN 27.1 PG (27.0-31.0); MEAN CORPUSCULAR HGB CONC 31.9 % (33.0-36.5); MEAN CORPUSCULAR VOLUME 84.9 FL (78-98); MONOCYTES # (AUTO) 0.5 X10'3 (0-0.9); MONOCYTES % (AUTO) 3.9 % (2-12); NEUTROPHILS # (AUTO) 12.6 X10'3 (1.8-7.7); NEUTROPHILS % (AUTO) 91.9 % (42-75); PLATELET COUNT 166 X10'3 (140-440); RED BLOOD COUNT 3.17 X10'6 (4.20-5.60); RED CELL DISTRIBUTION WIDTH 16.4 % (11.5-14.5); WHITE BLOOD COUNT 13.7 X10'3 (4.5-11.0)
--- NOTE | 2018-05-21 06:29 | NUR ---
Patient in room PCU 3009. I have received report from EMELY Hernandez and had the opportunity to ask questions and assume patient care.
[2018-05-21] MEDS: cefepime 2g/NS 100ml ADVANTAGE 100 ML IV SCH ×2 (07:19→19:48)
[2018-05-21] MEDS: lactobacillus rhamnosus 10,000 MMU CELLS/CAPSULE PO SCH (07:19)
[2018-05-21] MEDS: potassium Cl oral solution 20 MEQ/15 ML PO PRN ×3 (07:19→17:53)
[2018-05-21] MEDS: heparin, porcine 5000 units/ml vial SQ SCH ×2 (07:19→19:48)
[2018-05-21] MEDS: pantoprazole 40 MG vial IV SCH (07:19)
[2018-05-21] MEDS: HYDROcodone/acetaminophen 5mg/325mg tablet PO PRN ×4 (07:20→21:21)
[2018-05-21 08:03] LABS: ANISOCYTOSIS 1+; ELLIPTOCYTES 1+; HYPOCHROMASIA 1+; PLATELET ESTIMATE NORMAL; POLYCHROMASIA 1+; TOTAL CELLS COUNTED 100
[2018-05-21] MEDS: azithromycin/NS 500mg/250ml 250 ML IV SCH (08:44)
[2018-05-21 11:00] VITALS: BP 94/56
--- NOTE | 2018-05-21 11:07 | NUR ---
PAGER ID: [phone] MESSAGE: federico corona.. nereyda, Marina 300Stevie, is a smoker and requesting nicotine patch. thank you. ext [phone]
[2018-05-21] MEDS ORDERED: nicotine 14mg patch - 24hr TD ONE (11:10)
--- NOTE | 2018-05-21 11:45 | NUR ---
MOBLEY REMOVED, NO COMPLICATIONS. 700 MLS TOTAL OUTPUT.
[2018-05-21 15:00] VITALS: BP 123/66
--- NOTE | 2018-05-21 18:00 | NUR ---
Patient in room PCU 3014. I have received report from Jeanette HAN and had the opportunity to ask questions and assume patient care. at bedside, pt resting comfortably in bed, in no distress at this time. will continue to monitor.
--- NOTE | 2018-05-21 18:30 | NUR ---
Problems reprioritized. Patient report given, questions answered & plan of care reviewed with EMELY Fagan.
[2018-05-21 19:00] VITALS: BP 120/76
[2018-05-21] MEDS: traZODone 50mg tablet PO SCH (21:20)
[2018-05-21] MEDS: acetaminophen 325mg tablet PO PRN (22:26)
--- NOTE | 2018-05-21 22:28 | NUR ---
spoke with Dr Coburn re pt's HR now in 140's, still sinus, pt also has temp of 101.5, giving tylenol to treat, and rc'd order to bolus pt with 250ml NS. order placed and implemented. will continue to monitor pt.
[2018-05-21] MEDS: metoprolol tartrate 25mg tablet PO SCH (22:45)
[2018-05-21 23:00] VITALS: BP 144/90
[2018-05-22 01:06] LABS: ALBUMIN 2.1 G/DL (3.4-5.0); ANION GAP 13 (8-16); BLOOD UREA NITROGEN 7 MG/DL (7-18); BUN/CREATININE RATIO 9.9 (6.6-38.0); CALCIUM 7.5 MG/DL (8.5-10.1); CHLORIDE 105 MMOL/L (99-107); CREATININE 0.71 MG/DL (0.40-0.90); GLUCOSE 80 MG/DL (70-104); MAGNESIUM 1.3 MG/DL (1.5-2.4); POTASSIUM 3.2 MMOL/L (3.5-5.1); SODIUM 137 MMOL/L (135-145); TOTAL CARBON DIOXIDE 19.5 MMOL/L (24-32); eGFR 85 ML/MIN
[2018-05-22 02:09] LABS: BASOPHILS % (AUTO) 0.2 % (0-1); EOSINOPHILS # (AUTO) 0.2 X10'3 (0-0.9); EOSINOPHILS % (AUTO) 3.4 % (0-6); HEMOGLOBIN 8.4 g/dl (12.0-16.0); LYMPHOCYTES # (AUTO) 0.4 X10'3 (1.1-4.8); LYMPHOCYTES % (AUTO) 6.9 % (21-51); MEAN CORPUSCULAR HEMOGLOBIN 26.9 PG (27.0-31.0); MEAN CORPUSCULAR HGB CONC 32.3 % (33.0-36.5); MEAN CORPUSCULAR VOLUME 83.3 FL (78-98); MEAN PLATELET VOLUME 9.4 FL (7.4-10.4); MONOCYTES # (AUTO) 0.6 X10'3 (0-0.9); MONOCYTES % (AUTO) 9.3 % (2-12); NEUTROPHILS # (AUTO) 4.9 X10'3 (1.8-7.7); NEUTROPHILS % (AUTO) 80.2 % (42-75); PLATELET COUNT 159 X10'3 (140-440); RED BLOOD COUNT 3.12 X10'6 (4.20-5.60); RED CELL DISTRIBUTION WIDTH 16.3 % (11.5-14.5); WHITE BLOOD COUNT 6.2 X10'3 (4.5-11.0)
[2018-05-22 03:05] VITALS: BP 129/71
[2018-05-22] MEDS: HYDROcodone/acetaminophen 5mg/325mg tablet PO PRN (04:49)
[2018-05-22] MEDS: mag hydrox/Alum hydrox/simeth 30ml oral suspension PO PRN (04:50)
[2018-05-22] MEDS: potassium Cl oral solution 20 MEQ/15 ML PO PRN (04:50)
[2018-05-22] MEDS: magnesium Cl slow-release 64mg tablet PO PRN ×2 (04:50→16:58)
--- NOTE | 2018-05-22 06:30 | NUR ---
Patient in room PCU 3014. I have received report from EMELY Fagan and had the opportunity to ask questions and assume patient care.
--- NOTE | 2018-05-22 06:31 | NUR ---
Problems reprioritized. Patient report given, questions answered & plan of care reviewed with Ivonne HAN.
[2018-05-22 07:00] VITALS: BP 134/84
[2018-05-22] MEDS: pantoprazole 40mg Tablet.DR PO SCH (07:41)
[2018-05-22] MEDS: lactobacillus rhamnosus 10,000 MMU CELLS/CAPSULE PO SCH (07:41)
[2018-05-22] MEDS: cefepime 2g/NS 100ml ADVANTAGE 100 ML IV SCH (07:42)
[2018-05-22] MEDS: heparin, porcine 5000 units/ml vial SQ SCH ×2 (07:43→19:50)
[2018-05-22] MEDS: nicotine 14mg patch - 24hr TD SCH (07:43)
[2018-05-22] MEDS ORDERED: azithromycin 250mg tablet PO SCH (08:00)
--- NOTE | 2018-05-22 08:32 | NUR ---
PAGER ID: [phone] MESSAGE: [phone] pt Juan ELLIOTT heart rate is sustaining in 150s, still sinus. - Ivonne [phone]
--- NOTE | 2018-05-22 09:30 | NUR ---
Page to US: [id number] pt Juan has active order for . Thank you.
[2018-05-22] MEDS: normal saline 1000ml 1,000 ML IV SCH ×2 (10:07→19:52)
--- NOTE | 2018-05-22 10:38 | NUR ---
PAGER ID: [phone] MESSAGE: [id number] pt Juan I saw you DCd K and Mg replacement this am but her K 3.2 and Mg 1.3. May I add replacement orders back please. - Ivonne [phone]
[2018-05-22] MEDS ORDERED: magnesium 4gm in 100ml NS 100 ML IV PRN (10:40)
[2018-05-22] MEDS ORDERED: potassium Cl 40MEQ/NS 500ml 500 ML IV PRN ×2 (10:40)
[2018-05-22 11:00] VITALS: BP 138/83
[2018-05-22] MEDS: potassium Cl 20 mEq SR tablet PO PRN ×3 (11:29→21:25)
[2018-05-22] MEDS: HYDROcodone/acetaminophen 10/325mg tab PO PRN ×3 (11:30→21:23)
[2018-05-22] MEDS: CefTRIAXone 2gm/D5W 50ml 50 ML IV SCH (11:35)
[2018-05-22] MEDS: ondansetron/PF 4mg/2ml inj IV PRN ×2 (12:25→19:45)
[2018-05-22 15:00] VITALS: BP 149/88
--- NOTE | 2018-05-22 17:51 | NUR ---
Orientee documentation: I have reviewed and agree with all interventions, assessments performed and documented by EMELY Russell. [place] Medication Administration: For this medication-pass time frame, all medication were reviewed, dispensed, administered and documented per hospital policy by EMELY Russell and myself.
--- NOTE | 2018-05-22 18:26 | NUR ---
Problems reprioritized. Patient report given, questions answered & plan of care reviewed with EMELY Abreu.
--- NOTE | 2018-05-22 18:53 | NUR ---
Patient in room PCU 3014. I have received report from Ivonne HAN and Yvonne HAN and had the opportunity to ask questions and assume patient care.
--- NOTE | 2018-05-22 19:55 | NUR ---
Patient states that she didn't eat too much as cannot chew very well due to teeth that have rotted away from MS and lupus medication. Offered to change diet to chopped or mechanical soft, but patient declined. Addendum: 05/22/18 at 1956 by Lois Callaway RN Amended: Links added.
[2018-05-22] MEDS: traZODone 50mg tablet PO SCH (21:22)
[2018-05-22 23:00] VITALS: BP 133/89
[2018-05-23 02:00] VITALS: BP 140/89
[2018-05-23] MEDS: acetaminophen 325mg tablet PO PRN (03:37)
--- NOTE | 2018-05-23 03:40 | NUR ---
Called regarding temp elevation to 101.4. New orders obtained for blood cultures to be drawn with AM labs. 2x tylenol given.
--- NOTE | 2018-05-23 05:12 | NUR ---
Earlier in shift, pt. had managed to pull on PIV and it came out. 2 rn's had 5 attempts on this floor. POTATO LOADER managed to start on 6th attempt 22 guage to LFA. Fluids were hooked back up. About 10 mins ago informed pt. had rubbed out this PIV when using rubbing alcohol after going to bathroom. New PIV started by POTATO LOADER 22 gauge which was then wrapped in coban. Explained importance of keeping PIV in to pt. Patient stated that she understood. Temp at this time down to 99.4.
[2018-05-23] MEDS: normal saline 1000ml 1,000 ML IV SCH ×2 (05:35→15:36)
[2018-05-23] MEDS: HYDROcodone/acetaminophen 10/325mg tab PO PRN ×3 (05:40→20:24)
[2018-05-23] MEDS: ondansetron/PF 4mg/2ml inj IV PRN ×2 (05:40→20:24)
[2018-05-23 05:59] LABS: BASOPHILS % (AUTO) 0.1 % (0-1); EOSINOPHILS # (AUTO) 0.2 X10'3 (0-0.9); EOSINOPHILS % (AUTO) 3.9 % (0-6); HEMATOCRIT 27.9 % (35.0-45.0); HEMOGLOBIN 9.2 g/dl (12.0-16.0); LYMPHOCYTES # (AUTO) 0.6 X10'3 (1.1-4.8); LYMPHOCYTES % (AUTO) 12.6 % (21-51); MEAN CORPUSCULAR HEMOGLOBIN 27.1 PG (27.0-31.0); MEAN CORPUSCULAR VOLUME 82.1 FL (78-98); MEAN PLATELET VOLUME 9.3 FL (7.4-10.4); MONOCYTES # (AUTO) 0.6 X10'3 (0-0.9); MONOCYTES % (AUTO) 12.1 % (2-12); NEUTROPHILS # (AUTO) 3.5 X10'3 (1.8-7.7); NEUTROPHILS % (AUTO) 71.3 % (42-75); PLATELET COUNT 214 X10'3 (140-440); RED CELL DISTRIBUTION WIDTH 16.1 % (11.5-14.5); WHITE BLOOD COUNT 4.8 X10'3 (4.5-11.0)
[2018-05-23 06:00] VITALS: BP 130/85
[2018-05-23 06:13] LABS: ALANINE AMINOTRANSFERASE 17 U/L (12-78); ALBUMIN 2.2 G/DL (3.4-5.0); ALBUMIN/GLOBULIN RATIO 0.5 (1.1-1.5); ALKALINE PHOSPHATASE 144 IU/L (46-116); ANION GAP 13 (8-16); ASPARTATE AMINO TRANSFERASE 16 U/L (10-37); BILIRUBIN,TOTAL 0.3 MG/DL (0.1-1.0); BLOOD UREA NITROGEN 3 MG/DL (7-18); BUN/CREATININE RATIO 4.8 (6.6-38.0); CALCIUM 7.8 MG/DL (8.5-10.1); CHLORIDE 103 MMOL/L (99-107); CREATININE 0.62 MG/DL (0.40-0.90); GLUCOSE 89 MG/DL (70-104); MAGNESIUM 1.2 MG/DL (1.5-2.4); SODIUM 138 MMOL/L (135-145); TOTAL CARBON DIOXIDE 22.3 MMOL/L (24-32); TOTAL PROTEIN 6.5 G/DL (6.4-8.2); eGFR > 90 ML/MIN
[2018-05-23 06:41] LABS: POTASSIUM 2.9 MMOL/L (3.5-5.1)
--- NOTE | 2018-05-23 06:55 | NUR ---
Patient in room PCU 3014. I have received report from EMELY Abreu and had the opportunity to ask questions and assume patient care.
--- NOTE | 2018-05-23 06:57 | NUR ---
Problems reprioritized. Patient report given, questions answered & plan of care reviewed with Cecil HAN. Patient is currently sitting up in her bed watching TV in no distress at this time.
[2018-05-23] MEDS: CefTRIAXone 2gm/D5W 50ml 50 ML IV SCH (07:18)
[2018-05-23] MEDS: potassium Cl 20 mEq SR tablet PO PRN ×3 (07:18→15:35)
[2018-05-23] MEDS: magnesium Cl slow-release 64mg tablet PO PRN (07:18)
[2018-05-23] MEDS: pantoprazole 40mg Tablet.DR PO SCH (07:18)
[2018-05-23] MEDS: lactobacillus rhamnosus 10,000 MMU CELLS/CAPSULE PO SCH (07:18)
[2018-05-23] MEDS: nicotine 14mg patch - 24hr TD SCH (07:19)
[2018-05-23] MEDS: heparin, porcine 5000 units/ml vial SQ SCH ×2 (07:19→20:27)
--- NOTE | 2018-05-23 08:33 | NUR ---
PAGER ID: [phone] MESSAGE: [id number] Marina Martinez. Heart rate 140's (sinus) . BP 128/79 EMELY Jacob Ext [phone]
[2018-05-23 11:00] VITALS: BP 123/74
[2018-05-23 15:00] VITALS: BP 130/86
--- NOTE | 2018-05-23 18:30 | NUR ---
Problems reprioritized. Patient report given, questions answered & plan of care reviewed with EMELY Hall.
--- NOTE | 2018-05-23 18:32 | NUR ---
Patient in room PCU 3014. I have received report from XUAN HAN and had the opportunity to ask questions and assume patient care.
[2018-05-23 19:00] VITALS: BP 112/62
[2018-05-23] MEDS: traZODone 50mg tablet PO SCH (20:23)
[2018-05-23 23:00] VITALS: BP 126/70
[2018-05-24] MEDS: HYDROcodone/acetaminophen 10/325mg tab PO PRN ×5 (01:06→20:09)
[2018-05-24] MEDS: normal saline 1000ml 1,000 ML IV SCH (02:07)
[2018-05-24 03:00] VITALS: BP 117/58
[2018-05-24] MEDS: mag hydrox/Alum hydrox/simeth 30ml oral suspension PO PRN (04:55)
[2018-05-24 06:00] VITALS: BP 118/78
--- NOTE | 2018-05-24 06:10 | NUR ---
Problems reprioritized. Patient report given, questions answered & plan of care reviewed with XUAN HAN.
--- NOTE | 2018-05-24 06:11 | NUR ---
Patient in room PCU 3014. I have received report from EMELY Hall and had the opportunity to ask questions and assume patient care.
[2018-05-24] MEDS: CefTRIAXone 2gm/D5W 50ml 50 ML IV SCH (07:09)
[2018-05-24] MEDS: lactobacillus rhamnosus 10,000 MMU CELLS/CAPSULE PO SCH (07:09)
[2018-05-24] MEDS: pantoprazole 40mg Tablet.DR PO SCH (07:09)
[2018-05-24] MEDS: heparin, porcine 5000 units/ml vial SQ SCH ×2 (07:09→20:10)
[2018-05-24] MEDS: nicotine 14mg patch - 24hr TD SCH (07:10)
[2018-05-24 11:00] VITALS: BP 109/70
[2018-05-24] MEDS ORDERED: LIDOcaine 1%/PF 5ML 10 MG/ML VIAL ONE (13:11)
--- NOTE | 2018-05-24 13:35 | NUR ---
Dr Arevalo and IR team to patients bedside assessed both Right and Left Chest with Ultrasound and determined by Dr Arevalo to not have enough fluid to preform a Thora at this time. Nurse informed
--- NOTE | 2018-05-24 13:41 | NUR ---
PAGER ID: [phone] MESSAGE: [phone] Marina Martinez: Dr Arevalo assessed there was not enough fluid to preform the thoracentesis. EMELY Jacob Ext [phone]
[2018-05-24 15:00] VITALS: BP 102/67
[2018-05-24 18:00] VITALS: BP 127/73
--- NOTE | 2018-05-24 18:00 | NUR ---
Patient in room PCU 3014. I have received report from Cecil HAN and had the opportunity to ask questions and assume patient care.
--- NOTE | 2018-05-24 18:11 | NUR ---
Problems reprioritized. Patient report given, questions answered & plan of care reviewed with Betty.
[2018-05-24] MEDS: traZODone 50mg tablet PO SCH (20:09)
[2018-05-24 22:00] VITALS: BP 106/66
[2018-05-25] MEDS: HYDROcodone/acetaminophen 10/325mg tab PO PRN ×5 (01:03→21:13)
[2018-05-25 03:00] VITALS: BP 115/64
[2018-05-25 05:44] LABS: ALBUMIN 2.3 G/DL (3.4-5.0); ANION GAP 8 (8-16); BLOOD UREA NITROGEN 4 MG/DL (7-18); BUN/CREATININE RATIO 7.1 (6.6-38.0); CALCIUM 7.8 MG/DL (8.5-10.1); CHLORIDE 101 MMOL/L (99-107); CREATININE 0.56 MG/DL (0.40-0.90); GLUCOSE 81 MG/DL (70-104); POTASSIUM 3.2 MMOL/L (3.5-5.1); SODIUM 137 MMOL/L (135-145); TOTAL CARBON DIOXIDE 27.8 MMOL/L (24-32); eGFR > 90 ML/MIN
[2018-05-25 06:00] VITALS: BP 106/78
--- NOTE | 2018-05-25 06:06 | NUR ---
Patient in room PCU 3014. I have received report from EMELY Hernández and had the opportunity to ask questions and assume patient care.
[2018-05-25 06:43] LABS: BASOPHILS % (AUTO) 0.4 % (0-1); EOSINOPHILS # (AUTO) 0.2 X10'3 (0-0.9); EOSINOPHILS % (AUTO) 6.3 % (0-6); HEMATOCRIT 29.6 % (35.0-45.0); HEMOGLOBIN 9.7 g/dl (12.0-16.0); LYMPHOCYTES # (AUTO) 0.5 X10'3 (1.1-4.8); MEAN CORPUSCULAR HEMOGLOBIN 27.5 PG (27.0-31.0); MEAN CORPUSCULAR HGB CONC 32.8 % (33.0-36.5); MEAN CORPUSCULAR VOLUME 83.7 FL (78-98); MEAN PLATELET VOLUME 8.4 FL (7.4-10.4); MONOCYTES # (AUTO) 0.2 X10'3 (0-0.9); MONOCYTES % (AUTO) 8.8 % (2-12); NEUTROPHILS # (AUTO) 1.5 X10'3 (1.8-7.7); NEUTROPHILS % (AUTO) 65.5 % (42-75); PLATELET COUNT 325 X10'3 (140-440); RED BLOOD COUNT 3.53 X10'6 (4.20-5.60); RED CELL DISTRIBUTION WIDTH 15.6 % (11.5-14.5); WHITE BLOOD COUNT 2.4 X10'3 (4.5-11.0)
[2018-05-25] MEDS: lactobacillus rhamnosus 10,000 MMU CELLS/CAPSULE PO SCH (07:29)
[2018-05-25] MEDS: pantoprazole 40mg Tablet.DR PO SCH (07:29)
[2018-05-25] MEDS: potassium Cl 20 mEq SR tablet PO PRN ×3 (07:29→22:29)
[2018-05-25] MEDS: nicotine 14mg patch - 24hr TD SCH (07:29)
[2018-05-25] MEDS: heparin, porcine 5000 units/ml vial SQ SCH ×2 (07:30→21:12)
[2018-05-25] MEDS: CefTRIAXone 2gm/D5W 50ml 50 ML IV SCH (07:30)
[2018-05-25 08:22] LABS: TOTAL CELLS COUNTED 100
[2018-05-25 08:24] LABS: ANISOCYTOSIS 1+; PLATELET ESTIMATE NORMAL
[2018-05-25 11:00] VITALS: BP 111/68
--- NOTE | 2018-05-25 11:04 | NUR ---
PAGER ID: [phone] MESSAGE: [id number] Marina Martinez. May I renew the K and Mg replacement orders? K 3.2 EMELY Jacob Ext [phone]
[2018-05-25] MEDS ORDERED: potassium Cl 40MEQ/NS 500ml 500 ML IV PRN ×2 (11:10)
[2018-05-25] MEDS ORDERED: magnesium 4gm in 100ml NS 100 ML IV PRN (11:10)
[2018-05-25] MEDS ORDERED: potassium Cl 20 mEq SR tablet PO PRN (11:10)
[2018-05-25] MEDS ORDERED: magnesium Cl slow-release 64mg tablet PO PRN (11:10)
[2018-05-25 15:00] VITALS: BP 115/74
--- NOTE | 2018-05-25 15:40 | NUR ---
Initial: Pt admitted with sepsis secondary to pneumonia, blood culture growing Streptococcus pneumoniae per MD progress notes. Pt with pleuritic right-sided chest pain with parapneumonic effusion to have thoracocentesis per MD progress notes. Pt seen at beside given written and verbal protein education with RD contact information. Pt currently on a regular diet with documented PO intake 100% meeting nutrient needs. Pt endorses a good appetite and denies any food allergies or constipation/diarrhea. Pt states some difficulty chewing meat d/t missing teeth, pt agreeable to chopped meat with gravy, d/w dietary. LBM 05/24. No edema or wounds. Will continue to follow. Recommendations: 1) Continue with regular diet 2) Chopped meat with gravy TID 3) Wt per rx Addendum: 05/25/18 at [address] Amended: Links added.
[2018-05-25 18:00] VITALS: BP 111/61
--- NOTE | 2018-05-25 18:30 | NUR ---
Patient in room PCU 3014. I have received report from Cecil HAN and had the opportunity to ask questions and assume patient care.
--- NOTE | 2018-05-25 18:31 | NUR ---
Problems reprioritized. Patient report given, questions answered & plan of care reviewed with EMELY Hernández.
[2018-05-25] MEDS: traZODone 50mg tablet PO SCH (21:12)
[2018-05-25 22:00] VITALS: BP 125/78
[2018-05-26 02:00] VITALS: BP 104/57
[2018-05-26] MEDS: HYDROcodone/acetaminophen 10/325mg tab PO PRN ×3 (03:59→13:50)
[2018-05-26 06:00] VITALS: BP 112/70
--- NOTE | 2018-05-26 06:30 | NUR ---
Problems reprioritized. Patient report given, questions answered & plan of care reviewed with Ashley RN.
--- NOTE | 2018-05-26 06:35 | NUR ---
Patient in room PCU 3014. I have received report from EMELY Hill and had the opportunity to ask questions and assume patient care.
[2018-05-26 07:29] LABS: MAGNESIUM 1.6 MG/DL (1.5-2.4); POTASSIUM 3.7 MMOL/L (3.5-5.1)
[2018-05-26] MEDS: CefTRIAXone 2gm/D5W 50ml 50 ML IV SCH (08:00)
[2018-05-26] MEDS: pantoprazole 40mg Tablet.DR PO SCH (09:40)
[2018-05-26] MEDS: lactobacillus rhamnosus 10,000 MMU CELLS/CAPSULE PO SCH (09:40)
[2018-05-26] MEDS: heparin, porcine 5000 units/ml vial SQ SCH (09:41)
[2018-05-26] MEDS: nicotine 14mg patch - 24hr TD SCH (09:41)
[2018-05-26 10:41] LABS: BASOPHILS % (AUTO) 0.4 % (0-1); EOSINOPHILS # (AUTO) 0.2 X10'3 (0-0.9); EOSINOPHILS % (AUTO) 5.4 % (0-6); HEMATOCRIT 29.6 % (35.0-45.0); HEMOGLOBIN 9.6 g/dl (12.0-16.0); LYMPHOCYTES # (AUTO) 0.4 X10'3 (1.1-4.8); LYMPHOCYTES % (AUTO) 15.2 % (21-51); MEAN CORPUSCULAR HGB CONC 32.5 % (33.0-36.5); MEAN CORPUSCULAR VOLUME 83.1 FL (78-98); MONOCYTES # (AUTO) 0.2 X10'3 (0-0.9); MONOCYTES % (AUTO) 7.4 % (2-12); NEUTROPHILS % (AUTO) 71.6 % (42-75); PLATELET COUNT 386 X10'3 (140-440); RED BLOOD COUNT 3.56 X10'6 (4.20-5.60); RED CELL DISTRIBUTION WIDTH 15.5 % (11.5-14.5); WHITE BLOOD COUNT 2.9 X10'3 (4.5-11.0)
[2018-05-26 11:00] VITALS: BP 152/88
[2018-05-26] MEDS ORDERED: levoFLOXACIN 750MG TABLET PO SCH (11:00)
[2018-05-26] MEDS ORDERED: LEVO750T46 PO (11:17)
[2018-05-26 11:25] LABS: TOTAL CELLS COUNTED 100
[2018-05-26 11:26] LABS: ANISOCYTOSIS 1+; ELLIPTOCYTES 1+; PLATELET ESTIMATE NORMAL; TOXIC GRANULATION 1+
== END 2018-05-26 14:05 | disposition home or self-care (01) | DRG 720 ==
LOC: ER 14:01 → ED HOLD 16:07 → PCU 3S 17:30
PROVIDERS: ADMIT Family Medicine; ATTEND Internal Medicine
DX: A40.9 Streptococcal sepsis, unspecified (principal); E87.2 Acidosis; D89.9 Disorder involving the immune mechanism, unspecified; J18.1 Lobar pneumonia, unspecified organism; E86.0 Dehydration; B95.3 Streptococcus pneumoniae as the cause of diseases classified elsewhere; F17.210 Nicotine dependence, cigarettes, uncomplicated; G89.4 Chronic pain syndrome; I10 Essential (primary) hypertension; I25.10 Atherosclerotic heart disease of native coronary artery without angina pectoris; F32.9 Major depressive disorder, single episode, unspecified; E87.6 Hypokalemia; K21.9 Gastro-esophageal reflux disease without esophagitis; K59.00 Constipation, unspecified; Z79.899 Other long term (current) drug therapy; I25.2 Old myocardial infarction; Z59.0 Homelessness; Z88.1 Allergy status to other antibiotic agents
CPT/HCPCS: 36415; 71045; 71046; 71275; 74176; 74177; 76604; 76700; 80048; 80053; 81001; 83605; 83690; 83735; 83880; 84132; 84145; 84484; 85025; 85610; 87040; 87070; 87077; 87186; 87502; 87503; 93005; 96361; 96374; 96375; 99285; C9113; G0378; J0456; J0692; J0696; J1170; J1200; J1644; J2001; J2270; J2405; J2765; J3490; J7030; Q9963; Q9967

== ENCOUNTER 2018-06-22 11:16 | Emergency (ER) | payer MEDICAID ==
[~2018-06-22] VITALS: Ht 157.5 cm; Wt 50.0 kg
[~2018-06-22 11:16] MED LIST changes: -AMOX-580 PO; -HYDR-3973 PO; +LEVO750T46 PO; -ONDA4TAB11 PO
[2018-06-22 11:26] VITALS: BP 160/78
[2018-06-22] MEDS ORDERED: HYDROcodone/acetaminophen 5mg/325mg tablet PO ONE (13:35)
== END 2018-06-22 14:04 | disposition home or self-care (01) ==
LOC: ER 11:16
DX: G89.4 Chronic pain syndrome (principal); M79.641 Pain in right hand; M79.642 Pain in left hand; I25.2 Old myocardial infarction; I25.10 Atherosclerotic heart disease of native coronary artery without angina pectoris; Z88.8 Allergy status to other drugs, medicaments and biological substances; Z79.899 Other long term (current) drug therapy; Z79.2 Long term (current) use of antibiotics; Z56.0 Unemployment, unspecified; Z59.0 Homelessness
CPT/HCPCS: 99282

== ENCOUNTER 2018-06-25 07:04 | Emergency (ER) | payer MEDICAID ==
[~2018-06-25] VITALS: Ht 165.1 cm; Wt 49.1 kg
[2018-06-25] MEDS ORDERED: PRED20TA PO (08:03)
[2018-06-25] MEDS ORDERED: dexamethasone 4mg tablet PO ONE (08:05)
[2018-06-25] MEDS ORDERED: normal saline 1000ML IV soln IVB ONE (08:10)
[2018-06-25] MEDS ORDERED: ketorolac tromethamine 15mg/ml inj. IV ONE (08:10)
[2018-06-25 09:43] VITALS: BP 161/90
== END 2018-06-25 09:47 | disposition home or self-care (01) ==
LOC: ER 07:04
DX: F11.23 Opioid dependence with withdrawal (principal); M32.8 Other forms of systemic lupus erythematosus; G35 Multiple sclerosis; I25.10 Atherosclerotic heart disease of native coronary artery without angina pectoris; I25.2 Old myocardial infarction; G89.29 Other chronic pain; Z59.0 Homelessness; Z56.0 Unemployment, unspecified; Z98.890 Other specified postprocedural states; Z88.8 Allergy status to other drugs, medicaments and biological substances; Z79.899 Other long term (current) drug therapy
CPT/HCPCS: 96374; 99284; J1885; J7030; J8540

== ENCOUNTER 2018-06-30 15:23 | Emergency (ER) | payer MEDICAID ==
[~2018-06-30] VITALS: Ht 167.6 cm; Wt 48.0 kg
[~2018-06-30 15:23] MED LIST changes: +PRED20TA PO
[2018-06-30 19:13] VITALS: BP 169/81
[2018-06-30] MEDS ORDERED: dexamethasone sod phosphate 10mg/ml inj PO STA (20:22)
[2018-06-30] MEDS ORDERED: ketorolac tromethamine 15mg/ml inj. IM ONE (20:25)
== END 2018-06-30 21:08 | disposition home or self-care (01) ==
LOC: ER 15:24
DX: M54.2 Cervicalgia (principal); I25.10 Atherosclerotic heart disease of native coronary artery without angina pectoris; I25.2 Old myocardial infarction; G89.29 Other chronic pain; Z59.0 Homelessness; Z56.0 Unemployment, unspecified; Z88.8 Allergy status to other drugs, medicaments and biological substances
CPT/HCPCS: 96372; 99283; J1100; J1885

== ENCOUNTER 2018-08-23 08:50 | Day surgery (SDC) | payer MEDICAID ==
[~2018-08-23 08:50] MED LIST changes: -PRED20TA PO
[2018-08-23] MEDS ORDERED: LIDOcaine/PRILOcaine 5gm cream TP ONE ×2 (09:49→10:17)
--- NOTE | 2018-08-23 13:27 | NUR ---
Patient ambulated safely from [facility] and was admitted to outpatient wound care clinic for first time visit with Rosales Khoury MD. Wound cleansed and Emla cream applied per order. Patient assessed and medications and medical history reviewed. Dr. Khoury at bedside accompanied by RN. Wound assessed, time out performed by MD/RN. Wound debrided as detailed in the physician progress/procedure note. Plan of care discussed with patient. Dressings placed per MD orders. Patient instructed on the signs and symptoms of infection and to call the Wound Center if any occur or to go to the ED if we are closed: Increased pain in wound Increase in drainage from the wound Redness in the skin surrounding the wound Bleeding from the wound Temperature of 101 or greater Patient instructed that the weight of their body puts a large amount of pressure on their wounds. This pressure keeps the new tissue from growing and inhibits new blood vessels from forming. Explained that, if they continue to bear weight on a body part that has a wound, the time it takes to heal the wound increases, the wound may get worse or the wound may not heal at all. Patient verbalized understanding of all discharge instructions and plan of care. Patient left in stable condition with no sign or symptom of distress at time of discharge. Addendum: 08/23/18 at 1330 by Monie Brasher RN Amended: Links added.
== END 2018-08-23 10:52 | disposition home or self-care (01) ==
LOC: WOUND CARE 08:50
PROVIDERS: ATTEND Surgery
DX: L98.492 Non-pressure chronic ulcer of skin of other sites with fat layer exposed (principal); I25.2 Old myocardial infarction; S91.102A Unspecified open wound of left great toe without damage to nail, initial encounter; S91.104D Unspecified open wound of right lesser toe(s) without damage to nail, subsequent encounter; X58.XXXA Exposure to other specified factors, initial encounter; Y93.89 Activity, other specified; Y92.89 Other specified places as the place of occurrence of the external cause; Y99.8 Other external cause status
CPT/HCPCS: 97597; A6222; A6021

== ENCOUNTER 2018-08-30 09:06 | Day surgery (SDC) | payer MEDICAID ==
[~2018-08-30 09:06] MED LIST changes: -LEVO750T46 PO
[2018-08-30] MEDS ORDERED: LIDOcaine/PRILOcaine 5gm cream TP ONE ×2 (10:28→10:30)
--- NOTE | 2018-08-30 11:00 | NUR ---
Patient arrived via wheelchair from [facility] and was admitted to outpatient wound care for physician visit with Rosales Khoury MD. Dressing removed, wound cleansed and Emla cream applied per order. Patient assessed for changes in conditions, medications and medical history. 1020 - Dr. Khoury at bedside accompanied by RN. Wound assessed, time out performed by MD/RN. Wound debrided as detailed in the physician progress/procedure note. Plan of care discussed with patient. Dressings placed per MD orders. Patient instructed on the signs and symptoms of infection and to call the Wound Center if any occur or to go to the ED if we are closed: Increased pain in wound Increase in drainage from the wound Redness in the skin surrounding the wound Bleeding from the wound Temperature of 101 or greater Patient instructed that the weight of their body puts a large amount of pressure on their wounds. This pressure keeps the new tissue from growing and inhibits new blood vessels from forming. Explained that, if they continue to bear weight on a body part that has a wound, the time it takes to heal the wound increases, the wound may get worse or the wound may not heal at all. Patient verbalized understanding of all discharge instructions and plan of care and exited via wheelchair out to [facility] in stable condition with no sign or symptom of distress at time of discharge.
== END 2018-08-30 11:05 | disposition home or self-care (01) ==
LOC: WOUND CARE 09:06
PROVIDERS: ATTEND Surgery
DX: L98.492 Non-pressure chronic ulcer of skin of other sites with fat layer exposed (principal); I25.2 Old myocardial infarction; G89.29 Other chronic pain; I10 Essential (primary) hypertension; F32.9 Major depressive disorder, single episode, unspecified; F17.200 Nicotine dependence, unspecified, uncomplicated; Z86.19 Personal history of other infectious and parasitic diseases
CPT/HCPCS: 97597; A6021; A6206

== ENCOUNTER 2018-09-14 09:35 | Day surgery (SDC) | payer MEDICAID ==
[2018-09-14] MEDS ORDERED: LIDOcaine/PRILOcaine 5gm cream TP ONE (11:19)
--- NOTE | 2018-09-14 12:30 | NUR ---
Patient arrived via wheelchair from [facility] and was admitted to outpatient wound care for physician visit with Rosales Khoury MD. Dressing removed, wound cleansed and Emla cream applied per order. Patient assessed for changes in conditions, medications and medical history. 1145 - Dr. Khoury at bedside accompanied by RN. Wound assessed, time out performed by MD/RN. Wound debrided as detailed in the physician progress/procedure note. Plan of care discussed with patient. Dressings placed per MD orders. Patient instructed on the signs and symptoms of infection and to call the Wound Center if any occur or to go to the ED if we are closed: Increased pain in wound Increase in drainage from the wound Redness in the skin surrounding the wound Bleeding from the wound Temperature of 101 or greater Patient instructed that the weight of their body puts a large amount of pressure on their wounds. This pressure keeps the new tissue from growing and inhibits new blood vessels from forming. Explained that, if they continue to bear weight on a body part that has a wound, the time it takes to heal the wound increases, the wound may get worse or the wound may not heal at all. Patient verbalized understanding of all discharge instructions and plan of care and exited via wheelchair independently out to [facility] in stable condition with no sign or symptom of distress at time of discharge.
== END 2018-09-14 12:05 | disposition home or self-care (01) ==
LOC: WOUND CARE 09:35
PROVIDERS: ATTEND Surgery
DX: L97.512 Non-pressure chronic ulcer of other part of right foot with fat layer exposed (principal); L98.492 Non-pressure chronic ulcer of skin of other sites with fat layer exposed; I25.2 Old myocardial infarction; G89.29 Other chronic pain; I10 Essential (primary) hypertension; F32.9 Major depressive disorder, single episode, unspecified; F17.200 Nicotine dependence, unspecified, uncomplicated; Z86.19 Personal history of other infectious and parasitic diseases
CPT/HCPCS: 97597; A6021; A6206

== ENCOUNTER 2018-09-21 08:43 | Day surgery (SDC) | payer MEDICAID ==
[2018-09-21] MEDS ORDERED: LIDOcaine/PRILOcaine 5gm cream TP ONE (10:11)
--- NOTE | 2018-09-21 11:30 | NUR ---
Patient arrived via wheelchair lobby and was admitted to outpatient wound care for physician visit with Rosales Khoury MD. Dressing removed, wound cleansed and Emla cream applied per order. Patient assessed for changes in conditions, medications and medical history. 1025 - Dr. Khoury at bedside accompanied by RN. Wound assessed, time out performed by MD/RN. Wound debrided as detailed in the physician progress/procedure note. Plan of care discussed with patient. Dressings placed per MD orders. Patient instructed on the signs and symptoms of infection and to call the Wound Center if any occur or to go to the ED if we are closed: Increased pain in wound Increase in drainage from the wound Redness in the skin surrounding the wound Bleeding from the wound Temperature of 101 or greater Patient instructed that the weight of their body puts a large amount of pressure on their wounds. This pressure keeps the new tissue from growing and inhibits new blood vessels from forming. Explained that, if they continue to bear weight on a body part that has a wound, the time it takes to heal the wound increases, the wound may get worse or the wound may not heal at all. Patient verbalized understanding of all discharge instructions and plan of care and exited via wheelchair out to [facility] in stable condition with no sign or symptom of distress at time of discharge.
== END 2018-09-21 11:16 | disposition home or self-care (01) ==
LOC: WOUND CARE 08:43
PROVIDERS: ATTEND Surgery
DX: L97.512 Non-pressure chronic ulcer of other part of right foot with fat layer exposed (principal); L98.492 Non-pressure chronic ulcer of skin of other sites with fat layer exposed; I25.2 Old myocardial infarction; G89.29 Other chronic pain; I10 Essential (primary) hypertension; F32.9 Major depressive disorder, single episode, unspecified; F17.200 Nicotine dependence, unspecified, uncomplicated; Z86.19 Personal history of other infectious and parasitic diseases
CPT/HCPCS: 97597; A6021; A6206

== ENCOUNTER 2019-05-17 04:30 | Inpatient (IN) | payer MEDICAID ==
[~2019-05-17] VITALS: Ht 160 cm; Wt 55.0 kg
[~2019-05-17 04:30] MED LIST changes: -ALBU6.7H INH; +ALBU6.7H9 INH; -TRAZ-218 PO; +TRAZ-251 PO
[2019-05-17 05:00] LABS: BASOPHILS # (AUTO) 0.1 X10'3 (0-0.2); BASOPHILS % (AUTO) 0.6 % (0-1); EOSINOPHILS % (AUTO) 0.1 % (0-6); HEMATOCRIT 36.8 % (35.0-45.0); HEMOGLOBIN 12.1 g/dl (12.0-16.0); LYMPHOCYTES # (AUTO) 0.8 X10'3 (1.1-4.8); LYMPHOCYTES % (AUTO) 7.2 % (21-51); MEAN CORPUSCULAR HEMOGLOBIN 28.8 PG (27.0-31.0); MEAN CORPUSCULAR HGB CONC 32.9 g/dL (33.0-36.5); MEAN CORPUSCULAR VOLUME 87.5 FL (78-98); MEAN PLATELET VOLUME 8.3 FL (7.4-10.4); MONOCYTES # (AUTO) 1.2 X10'3 (0-0.9); MONOCYTES % (AUTO) 10.4 % (2-12); NEUTROPHILS # (AUTO) 9.1 X10'3 (1.8-7.7); NEUTROPHILS % (AUTO) 81.7 % (42-75); PLATELET COUNT 377 X10'3 (140-440); RED CELL DISTRIBUTION WIDTH 15.6 % (11.5-14.5); WHITE BLOOD COUNT 11.1 X10'3 (4.5-11.0)
[2019-05-17] MEDS ORDERED: normal saline 1000ML IV soln IVB ONE ×2 (05:10→07:15)
[2019-05-17 05:18] LABS: PARTIAL THROMBOPLASTIN TIME 28 SECONDS (22-32)
[2019-05-17 05:19] LABS: ALANINE AMINOTRANSFERASE 16 U/L (12-78); ALBUMIN 3.8 G/DL (3.4-5.0); ALBUMIN/GLOBULIN RATIO 0.7 (1.1-1.5); ALKALINE PHOSPHATASE 75 IU/L (46-116); ANION GAP 7 (8-16); ASPARTATE AMINO TRANSFERASE 26 U/L (10-37); BILIRUBIN,TOTAL 0.2 MG/DL (0.1-1.0); BLOOD UREA NITROGEN 22 MG/DL (7-18); BUN/CREATININE RATIO 22.7 (6.6-38.0); CALCIUM 9.2 MG/DL (8.5-10.1); CHLORIDE 105 MMOL/L (99-107); CREATININE 0.97 MG/DL (0.40-0.90); GLUCOSE 129 MG/DL (70-104); POTASSIUM 3.9 MMOL/L (3.5-5.1); SODIUM 142 MMOL/L (135-145); TOTAL CARBON DIOXIDE 29.8 MMOL/L (24-32); TOTAL PROTEIN 8.9 G/DL (6.4-8.2); eGFR 59 ML/MIN
[2019-05-17 05:36] LABS: ETHANOL < 0.010 GM/DL (0.0-0.010); TROPONIN I 0.12 NG/ML (0.0-0.05)
--- NOTE | 2019-05-17 05:42 | NUR ---
PT IS AROUSABLE TO NAME. SHE REMAINS ON NRBM. WARMING MESASURES ARE STILL IN EFFECT.
[2019-05-17] MEDS ORDERED: aspirin 81mg tab.chew PO ONE (06:30)
[2019-05-17] MEDS ORDERED: nitroGLYCERIN 0.4mg/hour patch TD ONE (06:30)
[2019-05-17] MEDS ORDERED: metoprolol tartrate 1mg/ml inj IV ONE ×3 (07:15→16:05)
[2019-05-17] MEDS ORDERED: metoprolol tartrate 50mg tablet PO ONE (07:15)
[2019-05-17] MEDS ORDERED: acetaminophen 650mg rectal suppository RC PRN (10:20)
[2019-05-17] MEDS ORDERED: magnesium 4gm in 100ml NS 100 ML IV PRN (10:20)
[2019-05-17] MEDS ORDERED: diphenhydrAMINE 50 mg/ml inj IV PRN (10:20)
[2019-05-17] MEDS ORDERED: potassium CL 10mEq/100ml bag 100 ML IV PRN ×2 (10:20)
[2019-05-17] MEDS ORDERED: magnesium 2GM in 50ml NS 50 ML IV PRN (10:20)
[2019-05-17] MEDS ORDERED: metoclopramide 5 mg/ml inj IV PRN (10:20)
[2019-05-17] MEDS ORDERED: mag hydrox/Alum hydrox/simeth 30ml oral suspension PO PRN (10:20)
[2019-05-17] MEDS ORDERED: magnesium Cl slow-release 64mg tablet PO PRN (10:20)
[2019-05-17] MEDS ORDERED: acetaminophen 325mg tablet PO PRN (10:20)
[2019-05-17] MEDS ORDERED: ALPRAZolam 0.25mg tablet PO PRN (10:20)
[2019-05-17] MEDS ORDERED: magnesium hydroxide 30ml (MOM) UD suspension PO PRN (10:20)
[2019-05-17] MEDS ORDERED: diphenhydrAMINE 25mg capsule PO PRN (10:20)
[2019-05-17] MEDS ORDERED: bisacodyl 10mg suppository rectal RC PRN (10:20)
[2019-05-17] MEDS ORDERED: DULO60CA45 PO (10:58)
[2019-05-17] MEDS ORDERED: LISI2.5T2 PO (10:58)
[2019-05-17 11:30] VITALS: BP 149/90
--- NOTE | 2019-05-17 11:30 | NUR ---
Received report from Ekta RN in ER at 1111. Received patient in stable condition at 1130. Tele monitor placed. VS assessed. 2 RN skin check completed. Completed a physical assesesment. Call light within reach All needs met VS: 98.9, HR 81, RR 24, O2 100% 2L NC, BP: 149/90, denies pain
[2019-05-17] MEDS: ondansetron/PF 4mg/2ml inj IV PRN ×2 (12:00→20:15)
[2019-05-17] MEDS: acetaminophen 325mg tablet PO PRN (12:00)
[2019-05-17] MEDS: normal saline 1000ml 1,000 ML IV SCH (12:06)
[2019-05-17 14:00] LABS: PHOSPHORUS 6.3 MG/DL (2.3-4.5)
[2019-05-17 15:00] VITALS: BP 143/80
--- NOTE | 2019-05-17 15:00 | NUR ---
Paged Jailene PAGER ID: [phone] MESSAGE: [phone]: Marnia Martinez pts HR has been trending in the 130 since admit. Kindly advise! - Sheree [phone]
[2019-05-17 18:00] VITALS: BP 147/88
--- NOTE | 2019-05-17 18:00 | NUR ---
Paged Jailene PAGER ID: [phone] MESSAGE: [phone]: Marina Martinez: Pt is still trending in the 129-130s post IV metoprolol. Pt has also requested for a nicotine patch. Kindly advise! -Sheree [phone]
[2019-05-17] MEDS ORDERED: diltiazem 5mg/ml 5ml inj. IV ONE (18:05)
--- NOTE | 2019-05-17 18:17 | NUR ---
Problems reprioritized. Patient report given, questions answered & plan of care reviewed with EMELY Kwok.
--- NOTE | 2019-05-17 18:26 | NUR ---
Patient in room PCU 3012. I have received report from Sheree HAN and had the opportunity to ask questions and assume patient care.
[2019-05-17] MEDS: nicotine 14mg patch - 24hr TD SCH (18:50)
[2019-05-17] MEDS: HYDROcodone/acetaminophen 5mg/325mg tablet PO PRN (18:50)
[2019-05-17] MEDS ORDERED: metoprolol tartrate 12.5mg (1/2 tablet) PO SCH (20:00)
[2019-05-17] MEDS: K and/or MAG REPLACEMENT MC SCH (20:00)
[2019-05-17] MEDS ORDERED: propranolol 40mg tablet PO SCH (20:00)
[2019-05-17] MEDS: docusate sod 100mg capsule PO SCH (20:19)
[2019-05-17] MEDS: traZODone 50mg tablet PO SCH (20:19)
[2019-05-17] MEDS: diltiazem 30mg tablet PO SCH (20:20)
[2019-05-17] MEDS: metoprolol tartrate 12.5mg (1/2 tablet) PO SCH (20:21)
[2019-05-17] MEDS ORDERED: temazepam 15mg capsule PO PRN (21:00)
[2019-05-17 22:00] VITALS: BP 138/86
[2019-05-18] MEDS: acetaminophen 325mg tablet PO PRN (00:39)
[2019-05-18 02:00] VITALS: BP 132/70
[2019-05-18] MEDS: diltiazem 30mg tablet PO SCH ×4 (02:46→20:18)
[2019-05-18] MEDS: HYDROcodone/acetaminophen 5mg/325mg tablet PO PRN ×3 (02:55→15:00)
[2019-05-18 04:40] LABS: BASOPHILS # (AUTO) 0.1 X10'3 (0-0.2); BASOPHILS % (AUTO) 0.8 % (0-1); EOSINOPHILS # (AUTO) 0.1 X10'3 (0-0.9); EOSINOPHILS % (AUTO) 1.1 % (0-6); HEMATOCRIT 32.4 % (35.0-45.0); HEMOGLOBIN 10.7 g/dl (12.0-16.0); LYMPHOCYTES # (AUTO) 0.9 X10'3 (1.1-4.8); MEAN CORPUSCULAR HEMOGLOBIN 28.5 PG (27.0-31.0); MEAN CORPUSCULAR VOLUME 86.2 FL (78-98); MEAN PLATELET VOLUME 8.6 FL (7.4-10.4); MONOCYTES # (AUTO) 0.3 X10'3 (0-0.9); MONOCYTES % (AUTO) 4.8 % (2-12); NEUTROPHILS # (AUTO) 5.4 X10'3 (1.8-7.7); NEUTROPHILS % (AUTO) 80.3 % (42-75); PLATELET COUNT 254 X10'3 (140-440); RED BLOOD COUNT 3.76 X10'6 (4.20-5.60); RED CELL DISTRIBUTION WIDTH 15.8 % (11.5-14.5); WHITE BLOOD COUNT 6.8 X10'3 (4.5-11.0)
[2019-05-18 04:54] LABS: ALANINE AMINOTRANSFERASE 18 U/L (12-78); ALBUMIN/GLOBULIN RATIO 0.7 (1.1-1.5); ALKALINE PHOSPHATASE 60 IU/L (46-116); ANION GAP 7 (8-16); ASPARTATE AMINO TRANSFERASE 21 U/L (10-37); BILIRUBIN,TOTAL 0.3 MG/DL (0.1-1.0); BLOOD UREA NITROGEN 8 MG/DL (7-18); CALCIUM 8.2 MG/DL (8.5-10.1); CHLORIDE 111 MMOL/L (99-107); CHOL/HDL RATIO 5.2 (0.00-4.99); CHOLESTEROL 134 MG/DL (0-200); CREATININE 0.73 MG/DL (0.40-0.90); GLUCOSE 82 MG/DL (70-104); HDL CHOLESTEROL 26 MG/DL (35-60); LDL CHOLESTEROL 80 MG/DL (50-100); MAGNESIUM 1.7 MG/DL (1.5-2.4); PHOSPHORUS 2.4 MG/DL (2.3-4.5); SODIUM 146 MMOL/L (135-145); TOTAL PROTEIN 7.1 G/DL (6.4-8.2); TRIGLYCERIDES 185 MG/DL (20-135); eGFR 82 ML/MIN
[2019-05-18] MEDS: normal saline 1000ml 1,000 ML IV SCH ×2 (04:54→21:51)
[2019-05-18 05:00] LABS: POTASSIUM 2.4 MMOL/L (3.5-5.1)
--- NOTE | 2019-05-18 05:10 | NUR ---
Page Sent PAGER ID: [phone] MESSAGE: [id number] Marina Martinez here for heroine OD and tachycardia has critical low potassium at 2.4 down from 3.9 yesterday, pt on k/mag protocol.
[2019-05-18] MEDS: potassium Cl 20 mEq SR tablet PO PRN ×5 (05:15→21:45)
--- NOTE | 2019-05-18 06:27 | NUR ---
Problems reprioritized. Patient report given, questions answered & plan of care reviewed with Sheree HAN.
--- NOTE | 2019-05-18 06:50 | NUR ---
Patient in room PCU 3012. I have received report from EMELY Kwok and had the opportunity to ask questions and assume patient care.
[2019-05-18 07:00] VITALS: BP 115/58
[2019-05-18] MEDS: enoxaparin 40mg/0.4ml syringe SUBCUT SCH (07:44)
[2019-05-18] MEDS: duloxetine 30mg CAPSULE.DR PO SCH (07:45)
[2019-05-18] MEDS: potassium chloride 10mEq ER tablet PO SCH (07:45)
[2019-05-18] MEDS: docusate sod 100mg capsule PO SCH ×2 (07:45→20:18)
[2019-05-18] MEDS: nicotine 14mg patch - 24hr TD SCH (07:45)
[2019-05-18] MEDS: ondansetron/PF 4mg/2ml inj IV PRN ×2 (07:48→17:55)
[2019-05-18] MEDS: metoprolol tartrate 12.5mg (1/2 tablet) PO SCH ×2 (07:48→21:45)
[2019-05-18] MEDS: K and/or MAG REPLACEMENT MC SCH ×2 (07:53→20:00)
[2019-05-18] MEDS ORDERED: lisinopril 2.5mg tablet PO SCH (08:00)
[2019-05-18 11:00] VITALS: BP 123/66
[2019-05-18 15:00] VITALS: BP 123/64
[2019-05-18 18:00] VITALS: BP 122/73
--- NOTE | 2019-05-18 18:45 | NUR ---
Problems reprioritized. Patient report given, questions answered & plan of care reviewed with EMELY Tate.
--- NOTE | 2019-05-18 18:51 | NUR ---
Patient in room PCU 3012. I have received report from Sheree HAN and had the opportunity to ask questions and assume patient care.
[2019-05-18] MEDS: pregabalin 75mg capsule PO SCH (20:19)
[2019-05-18] MEDS: traZODone 50mg tablet PO SCH (21:00)
[2019-05-18] MEDS: HYDROcodone/acetaminophen 10/325mg tab PO PRN (21:47)
[2019-05-18 22:00] VITALS: BP 130/78
[2019-05-19] MEDS: diltiazem 30mg tablet PO SCH ×3 (01:54→13:01)
[2019-05-19] MEDS: HYDROcodone/acetaminophen 10/325mg tab PO PRN ×3 (01:57→13:01)
[2019-05-19 02:00] VITALS: BP 133/60
[2019-05-19 06:00] VITALS: BP 121/44
--- NOTE | 2019-05-19 06:00 | NUR ---
Patient in room PCU 3012. I have received report from Rhiannon HAN, and had the opportunity to ask questions and assume patient care.
[2019-05-19 06:14] LABS: BASOPHILS % (AUTO) 0.5 % (0-1); EOSINOPHILS # (AUTO) 0.1 X10'3 (0-0.9); EOSINOPHILS % (AUTO) 1.4 % (0-6); HEMATOCRIT 37.6 % (35.0-45.0); HEMOGLOBIN 12.4 g/dl (12.0-16.0); LYMPHOCYTES # (AUTO) 0.8 X10'3 (1.1-4.8); LYMPHOCYTES % (AUTO) 10.4 % (21-51); MEAN CORPUSCULAR HEMOGLOBIN 28.3 PG (27.0-31.0); MEAN CORPUSCULAR HGB CONC 32.9 g/dL (33.0-36.5); MEAN CORPUSCULAR VOLUME 86.2 FL (78-98); MEAN PLATELET VOLUME 8.8 FL (7.4-10.4); MONOCYTES # (AUTO) 0.4 X10'3 (0-0.9); MONOCYTES % (AUTO) 5.3 % (2-12); NEUTROPHILS # (AUTO) 6.1 X10'3 (1.8-7.7); NEUTROPHILS % (AUTO) 82.4 % (42-75); PLATELET COUNT 236 X10'3 (140-440); RED BLOOD COUNT 4.36 X10'6 (4.20-5.60); RED CELL DISTRIBUTION WIDTH 15.7 % (11.5-14.5); WHITE BLOOD COUNT 7.4 X10'3 (4.5-11.0)
[2019-05-19 06:28] LABS: ALANINE AMINOTRANSFERASE 19 U/L (12-78); ALBUMIN 3.2 G/DL (3.4-5.0); ALBUMIN/GLOBULIN RATIO 0.7 (1.1-1.5); ALKALINE PHOSPHATASE 72 IU/L (46-116); ANION GAP 11 (8-16); ASPARTATE AMINO TRANSFERASE 18 U/L (10-37); BILIRUBIN,TOTAL 0.5 MG/DL (0.1-1.0); BLOOD UREA NITROGEN 3 MG/DL (7-18); BUN/CREATININE RATIO 4.5 (6.6-38.0); CALCIUM 8.4 MG/DL (8.5-10.1); CHLORIDE 106 MMOL/L (99-107); CREATININE 0.67 MG/DL (0.40-0.90); GLUCOSE 83 MG/DL (70-104); MAGNESIUM 1.6 MG/DL (1.5-2.4); PHOSPHORUS 1.7 MG/DL (2.3-4.5); POTASSIUM 3.1 MMOL/L (3.5-5.1); SODIUM 143 MMOL/L (135-145); TOTAL CARBON DIOXIDE 26.4 MMOL/L (24-32); TOTAL PROTEIN 7.9 G/DL (6.4-8.2); eGFR 90 ML/MIN
--- NOTE | 2019-05-19 06:53 | NUR ---
Problems reprioritized. Patient report given, questions answered & plan of care reviewed with Rose HAN.
[2019-05-19] MEDS: nicotine 14mg patch - 24hr TD SCH (08:29)
[2019-05-19] MEDS: metoprolol tartrate 12.5mg (1/2 tablet) PO SCH (08:31)
[2019-05-19] MEDS: potassium chloride 10mEq ER tablet PO SCH (08:32)
[2019-05-19] MEDS: duloxetine 30mg CAPSULE.DR PO SCH (08:32)
[2019-05-19] MEDS: pregabalin 75mg capsule PO SCH (08:32)
[2019-05-19] MEDS: docusate sod 100mg capsule PO SCH (08:32)
[2019-05-19] MEDS: enoxaparin 40mg/0.4ml syringe SUBCUT SCH (08:35)
[2019-05-19] MEDS: K and/or MAG REPLACEMENT MC SCH (08:44)
[2019-05-19] MEDS: potassium Cl 20 mEq SR tablet PO PRN ×2 (08:48→13:00)
[2019-05-19 11:00] VITALS: BP 131/72
[2019-05-19] MEDS ORDERED: METO25TA6 PO (11:42)
[2019-05-19] MEDS ORDERED: NICO-631 TD (11:42)
[2019-05-19] MEDS ORDERED: LYR75C PO (11:42)
[2019-05-19] MEDS ORDERED: DILT30TA5 PO (11:42)
[2019-05-19] MEDS ORDERED: HYDR-4353 PO (11:42)
[2019-05-19] MEDS: normal saline 1000ml 1,000 ML IV SCH (12:19)
--- NOTE | 2019-05-19 13:30 | NUR ---
Needs much assistance. encouraged to seek nursing home at the [facility] as per Pt. plan. All belongings accounted for.
== END 2019-05-19 15:57 | disposition home or self-care (01) | DRG 816 ==
LOC: ER 04:31 → ED HOLD 10:19 → PCU 3S 14:52
PROVIDERS: ADMIT Family Medicine; ATTEND Family Medicine
DX: T40.1X1A Poisoning by heroin, accidental (unintentional), initial encounter (principal); I21.A1 Myocardial infarction type 2; N17.9 Acute kidney failure, unspecified; E87.1 Hypo-osmolality and hyponatremia; G35 Multiple sclerosis; M32.9 Systemic lupus erythematosus, unspecified; R00.0 Tachycardia, unspecified; F17.210 Nicotine dependence, cigarettes, uncomplicated; F11.90 Opioid use, unspecified, uncomplicated; D64.9 Anemia, unspecified; I50.9 Heart failure, unspecified; E87.6 Hypokalemia; G89.4 Chronic pain syndrome; F32.9 Major depressive disorder, single episode, unspecified; R09.02 Hypoxemia; I25.10 Atherosclerotic heart disease of native coronary artery without angina pectoris; N18.9 Chronic kidney disease, unspecified; Y92.89 Other specified places as the place of occurrence of the external cause; Z80.1 Family history of malignant neoplasm of trachea, bronchus and lung; Z80.3 Family history of malignant neoplasm of breast; I25.2 Old myocardial infarction; Z59.0 Homelessness; Z88.8 Allergy status to other drugs, medicaments and biological substances
CPT/HCPCS: 36415; 71045; 80053; 80061; 80320; 83735; 84100; 84132; 84443; 84484; 85025; 85610; 85730; 87081; 93005; 96374; 96376; 97110; 97116; 97162; 99285; G0378; J1650; J2405; J3490; J7030

== ENCOUNTER 2019-06-30 12:06 | Emergency (ER) | payer MEDICAID ==
[~2019-06-30] VITALS: Ht 160 cm; Wt 52.0 kg
[~2019-06-30 12:06] MED LIST changes: -ALBU6.7H9 INH; +DILT30TA5 PO; -DULO-31 PO; +DULO60CA45 PO; +HYDR-4353 PO; -LISI-600 PO; +LISI2.5T2 PO; +LYR75C PO; +METO25TA6 PO; +NAPR-56 PO; +NICO-631 TD; -PANT40TA4 PO; -PROP40TA72 PO; +TRAM50TA2 PO
[2019-06-30 12:40] LABS: BASOPHILS # (AUTO) 0.1 X10'3 (0-0.2); BASOPHILS % (AUTO) 0.8 % (0-1); EOSINOPHILS % (AUTO) 0.5 % (0-6); HEMATOCRIT 36.6 % (35.0-45.0); HEMOGLOBIN 11.8 g/dl (12.0-16.0); LYMPHOCYTES # (AUTO) 0.9 X10'3 (1.1-4.8); LYMPHOCYTES % (AUTO) 9.9 % (21-51); MEAN CORPUSCULAR HEMOGLOBIN 26.8 PG (27.0-31.0); MEAN CORPUSCULAR HGB CONC 32.2 g/dL (33.0-36.5); MEAN CORPUSCULAR VOLUME 83.3 FL (78-98); MEAN PLATELET VOLUME 8.5 FL (7.4-10.4); MONOCYTES # (AUTO) 0.5 X10'3 (0-0.9); MONOCYTES % (AUTO) 5.7 % (2-12); NEUTROPHILS # (AUTO) 7.8 X10'3 (1.8-7.7); NEUTROPHILS % (AUTO) 83.1 % (42-75); PLATELET COUNT 340 X10'3 (140-440); RED CELL DISTRIBUTION WIDTH 16.7 % (11.5-14.5); WHITE BLOOD COUNT 9.4 X10'3 (4.5-11.0)
[2019-06-30 12:51] LABS: ALANINE AMINOTRANSFERASE 12 U/L (12-78); ALBUMIN 3.1 G/DL (3.4-5.0); ALBUMIN/GLOBULIN RATIO 0.6 (1.1-1.5); ALKALINE PHOSPHATASE 110 IU/L (46-116); ANION GAP 7 (8-16); ASPARTATE AMINO TRANSFERASE 25 U/L (10-37); BILIRUBIN,TOTAL 0.4 MG/DL (0.1-1.0); BLOOD UREA NITROGEN 9 MG/DL (7-18); BUN/CREATININE RATIO 12.3 (6.6-38.0); CHLORIDE 102 MMOL/L (99-107); CREATININE 0.73 MG/DL (0.40-0.90); GLUCOSE 117 MG/DL (70-104); POTASSIUM 3.6 MMOL/L (3.5-5.1); SODIUM 137 MMOL/L (135-145); TOTAL CARBON DIOXIDE 28.3 MMOL/L (24-32); TOTAL PROTEIN 8.5 G/DL (6.4-8.2); eGFR 82 ML/MIN
[2019-06-30 12:55] LABS: CALCIUM 8.9 MG/DL (8.5-10.1); ETHANOL < 0.010 GM/DL (0.0-0.010); MAGNESIUM 1.8 MG/DL (1.5-2.4); TROPONIN I < 0.04 NG/ML (0.0-0.05)
--- NOTE | 2019-06-30 13:01 | NUR ---
BACK FROM CT
--- NOTE | 2019-06-30 13:05 | NUR ---
CALLED OFF STROKE ALERT AT [phone]
[2019-06-30] MEDS ORDERED: HYDROcodone/acetaminophen 5mg/325mg tablet PO ONE (13:50)
[2019-06-30 14:11] LABS: CLARITY,URINE CLEAR (Clear); COLOR,URINE YELLOW (Yellow); GLUCOSE, URINE NEGATIVE (Neg); KETONES,URINE NEGATIVE (Neg); LEUKOCYTE ESTERASE ,URINE NEGATIVE (Neg); NITRITES, URINE NEGATIVE (Neg); OCCULT BLOOD,URINE NEGATIVE (Neg); PH,URINE 7.5 (4.8-8.0); PROTEIN,URINE NEGATIVE (Neg); UROBILINOGEN,URINE 0.2 E.U/dL (0.2-1.0)
[2019-06-30 14:14] LABS: UA COLLECTION TYPE CLN CATCH MIDSTREAM
[2019-06-30 14:16] LABS: URINE AMPHETAMINE SCREEN NEGATIVE (Neg); URINE BARBITUATE SCREEN NEGATIVE (Neg); URINE BENZODIAZEPINES SCREEN NEGATIVE (Neg); URINE CANNABINOID SCREEN NEGATIVE (Neg); URINE COCAINE SCREEN NEGATIVE (Neg); URINE METHADONE SCREEN NEGATIVE (Neg); URINE OPIATE SCREEN POSITIVE (Neg); URINE PHENCYCLIDINE SCREEN NEGATIVE (Neg)
[2019-06-30 14:21] VITALS: BP 175/71
== END 2019-06-30 14:11 | disposition home or self-care (01) ==
LOC: ER 12:06
DX: S00.03XA Contusion of scalp, initial encounter (principal); I25.10 Atherosclerotic heart disease of native coronary artery without angina pectoris; I25.2 Old myocardial infarction; G89.29 Other chronic pain; F32.9 Major depressive disorder, single episode, unspecified; F11.90 Opioid use, unspecified, uncomplicated; Z59.0 Homelessness; Z56.0 Unemployment, unspecified; Z88.8 Allergy status to other drugs, medicaments and biological substances; Z79.899 Other long term (current) drug therapy; Z72.89 Other problems related to lifestyle; W18.39XA Other fall on same level, initial encounter; Y93.89 Activity, other specified; Y92.89 Other specified places as the place of occurrence of the external cause; Y99.8 Other external cause status
CPT/HCPCS: 36415; 70450; 71045; 80053; 80305; 80320; 81003; 83735; 84484; 85025; 93005; 99285

== ENCOUNTER 2020-12-15 22:37 | Emergency (ER) | payer MEDICAID ==
[~2020-12-15] VITALS: Ht 165.1 cm; Wt 68.2 kg
[~2020-12-15 22:37] MED LIST changes: +DIPH-1055 PO; -DIPH25CA46 PO; +LISI2.5T14 PO; -LISI2.5T2 PO; +LOP25T PO; -METO25TA6 PO; -NAPR-56 PO; -TRAM50TA2 PO
[2020-12-15 22:58] VITALS: BP 169/97
--- NOTE | 2020-12-15 23:38 | NUR ---
PT SIGNING OUT AMA. SIGNED PAPERWORK. AWAITING A CAB.
== END 2020-12-16 00:17 | disposition home or self-care (01) ==
LOC: ER 22:38
DX: T40.1X1A Poisoning by heroin, accidental (unintentional), initial encounter (principal); R41.0 Disorientation, unspecified; F19.90 Other psychoactive substance use, unspecified, uncomplicated; G35 Multiple sclerosis; I25.10 Atherosclerotic heart disease of native coronary artery without angina pectoris; I25.2 Old myocardial infarction; G89.29 Other chronic pain; Z87.01 Personal history of pneumonia (recurrent); Z98.891 History of uterine scar from previous surgery; Z56.0 Unemployment, unspecified; Z59.0 Homelessness; F11.90 Opioid use, unspecified, uncomplicated; Z88.8 Allergy status to other drugs, medicaments and biological substances; Z79.899 Other long term (current) drug therapy; Y92.89 Other specified places as the place of occurrence of the external cause
CPT/HCPCS: 99284

== ENCOUNTER 2021-03-15 10:21 | Emergency (ER) | payer MEDICAID ==
[~2021-03-15] VITALS: Ht 165.1 cm; Wt 60.0 kg
[~2021-03-15 10:21] MED LIST changes: -DULO60CA45 PO; +DULO60CA60 PO; -POTA10TA36 PO; +POTA10TA37 PO
[2021-03-15 11:51] VITALS: BP 133/84
[2021-03-15 15:38] LABS: BASOPHILS # (AUTO) 0.1 X10'3 (0-0.2); BASOPHILS % (AUTO) 0.8 % (0-1); EOSINOPHILS # (AUTO) 0.2 X10'3 (0-0.9); EOSINOPHILS % (AUTO) 2.6 % (0-6); HEMATOCRIT 35.3 % (35.0-45.0); HEMOGLOBIN 11.5 g/dl (12.0-16.0); LYMPHOCYTES % (AUTO) 16.4 % (21-51); MEAN CORPUSCULAR HEMOGLOBIN 25.7 PG (27.0-31.0); MEAN CORPUSCULAR HGB CONC 32.6 g/dL (33.0-36.5); MEAN CORPUSCULAR VOLUME 78.8 FL (78-98); MONOCYTES # (AUTO) 0.8 X10'3 (0-0.9); MONOCYTES % (AUTO) 12.2 % (2-12); NEUTROPHILS # (AUTO) 4.2 X10'3 (1.8-7.7); PLATELET COUNT 258 X10'3 (140-440); RED BLOOD COUNT 4.48 X10'6 (4.20-5.60); RED CELL DISTRIBUTION WIDTH 17.5 % (11.5-14.5); WHITE BLOOD COUNT 6.2 X10'3 (4.5-11.0)
[2021-03-15 15:50] LABS: ALANINE AMINOTRANSFERASE 21 U/L (12-78); ALBUMIN 2.8 G/DL (3.4-5.0); ALBUMIN/GLOBULIN RATIO 0.6 (1.1-1.5); ALKALINE PHOSPHATASE 99 IU/L (46-116); ANION GAP 10 (8-16); ASPARTATE AMINO TRANSFERASE 29 U/L (10-37); BILIRUBIN,TOTAL 0.6 MG/DL (0.1-1.0); BLOOD UREA NITROGEN 9 MG/DL (7-18); CALCIUM 8.4 MG/DL (8.5-10.1); CHLORIDE 106 MMOL/L (99-107); GLUCOSE 78 MG/DL (70-104); LIPASE < 50 U/L (73-393); SODIUM 144 MMOL/L (135-145); TOTAL CARBON DIOXIDE 27.7 MMOL/L (24-32); TOTAL PROTEIN 7.2 G/DL (6.4-8.2); eGFR > 90 ML/MIN
[2021-03-15 15:53] LABS: POTASSIUM 2.7 MMOL/L (3.5-5.1)
[2021-03-15] MEDS ORDERED: potassium Cl 20 mEq SR tablet PO ONE (16:00)
[2021-03-15] MEDS ORDERED: potassium Cl 10 mEq/100mL bag IV ONE (16:00)
[2021-03-15] MEDS ORDERED: morphine 4 MG/ML inj SYRINge IM ONE (16:05)
[2021-03-15] MEDS ORDERED: ondansetron 4mg rapidly disintigrating tab PO ONE (16:05)
[2021-03-15 17:06] LABS: CLARITY,URINE CLOUDY (Clear); COLOR,URINE DARK YELLOW (Yellow); GLUCOSE, URINE NEGATIVE (Neg); KETONES,URINE TRACE mg/dl (Neg); LEUKOCYTE ESTERASE ,URINE NEGATIVE (Neg); NITRITES, URINE NEGATIVE (Neg); OCCULT BLOOD,URINE NEGATIVE (Neg); PH,URINE 7.5 (4.8-8.0); PROTEIN,URINE TRACE mg/dl (Neg); UA COLLECTION TYPE CLN CATCH MIDSTREAM
[2021-03-15 17:13] LABS: BACTERIA,URINE 4+ /HPF (Neg); MUCUS STRANDS NONE SEEN /LPF (Neg); RBC,URINE NONE SEEN /HPF (0-2); SQUAMOUS EPITHELIAL CELL,UR MODERATE /LPF (FEW)
[2021-03-15 17:15] LABS: AMORPHOUS PHOSPHATES 1+; TRANSITIONAL EPI CELLS,URINE FEW /HPF
[2021-03-15] MEDS ORDERED: SULF1TAB45 PO (17:30)
[2021-03-15] MEDS ORDERED: POTA10CA44 PO (17:31)
[2021-03-15] MEDS ORDERED: sulfamethoxazole/trimethoprim DS (800/160mg) tablet PO ONE (17:45)
== END 2021-03-15 18:21 | disposition home or self-care (01) ==
LOC: ER 10:22
DX: N39.0 Urinary tract infection, site not specified (principal); E87.6 Hypokalemia; G35 Multiple sclerosis; I25.10 Atherosclerotic heart disease of native coronary artery without angina pectoris; I25.2 Old myocardial infarction; L93.2 Other local lupus erythematosus; G89.29 Other chronic pain; Z87.01 Personal history of pneumonia (recurrent); Z98.891 History of uterine scar from previous surgery; Z72.89 Other problems related to lifestyle; Z56.0 Unemployment, unspecified; Z59.00 Homelessness unspecified; Z79.899 Other long term (current) drug therapy
CPT/HCPCS: 36415; 74176; 80053; 81001; 83690; 85025; 87088; 96372; 96374; 99285; J2270; J3480

== ENCOUNTER 2022-10-30 20:41 | Emergency (ER) | payer MEDICAID ==
[~2022-10-30] VITALS: Ht 167.6 cm; Wt 63.6 kg
[~2022-10-30 20:41] MED LIST changes: +POTA-206 PO; -POTA10TA37 PO
[2022-10-30 20:56] VITALS: BP 165/109
[2022-10-30 21:43] LABS: BASOPHILS % (AUTO) 0.7 % (0-1); EOSINOPHILS % (AUTO) 1.1 % (0-6); HEMATOCRIT 35.8 % (35.0-45.0); HEMOGLOBIN 11.5 g/dl (12.0-16.0); LYMPHOCYTES # (AUTO) 1.2 X10'3 (1.1-4.8); LYMPHOCYTES % (AUTO) 28.2 % (21-51); MEAN CORPUSCULAR HEMOGLOBIN 25.7 PG (27.0-31.0); MEAN CORPUSCULAR HGB CONC 32.3 g/dL (33.0-36.5); MEAN CORPUSCULAR VOLUME 79.8 FL (78-98); MEAN PLATELET VOLUME 8.7 FL (7.4-10.4); MONOCYTES # (AUTO) 0.4 X10'3 (0-0.9); MONOCYTES % (AUTO) 9.6 % (2-12); NEUTROPHILS # (AUTO) 2.6 X10'3 (1.8-7.7); NEUTROPHILS % (AUTO) 60.4 % (42-75); PLATELET COUNT 269 X10'3 (140-440); RED BLOOD COUNT 4.48 X10'6 (4.20-5.60); RED CELL DISTRIBUTION WIDTH 17.3 % (11.5-14.5); WHITE BLOOD COUNT 4.3 X10'3 (4.5-11.0)
[2022-10-30 21:55] LABS: ALANINE AMINOTRANSFERASE 32 U/L (12-78); ALBUMIN 3.4 G/DL (3.4-5.0); ALBUMIN/GLOBULIN RATIO 0.8 (1.1-1.5); ALKALINE PHOSPHATASE 123 IU/L (46-116); ANION GAP 11 (8-16); ASPARTATE AMINO TRANSFERASE 39 U/L (10-37); BILIRUBIN,TOTAL 0.4 MG/DL (0.1-1.0); BLOOD UREA NITROGEN 20 MG/DL (7-18); BUN/CREATININE RATIO 32.3 (10.0-20.0); CHLORIDE 106 MMOL/L (99-107); CREATININE 0.62 MG/DL (0.40-0.90); GLUCOSE 80 MG/DL (70-104); SODIUM 142 MMOL/L (135-145); TOTAL CARBON DIOXIDE 24.6 MMOL/L (24-32); TOTAL PROTEIN 7.7 G/DL (6.4-8.2); eGFR > 90 ML/MIN
[2022-10-30 21:58] LABS: POTASSIUM 2.7 MMOL/L (3.5-5.1)
[2022-10-30] MEDS ORDERED: ondansetron/PF 4mg/2ml inj IV ONE (22:40)
[2022-10-30] MEDS ORDERED: HYDROcodone/acetaminophen 10/325mg tab PO ONE (22:40)
[2022-10-30] MEDS ORDERED: morphine 4 MG/ML inj SYRINge IV ONE (22:40)
[2022-10-30] MEDS ORDERED: nitroGLYCERIN 1gm ointment UD TP ONE (22:55)
[2022-10-30] MEDS ORDERED: aspirin 81mg tab.chew PO ONE (22:55)
[2022-10-30] MEDS ORDERED: magnesium 4gm in 100ml NS 100 ML IV PRN (23:15)
[2022-10-30] MEDS ORDERED: PERFLUTREN PROTEIN-A MICROSPHR (Optison) 0.22 MG/ML 3ML VIAL IV ONE (23:15)
[2022-10-30] MEDS ORDERED: ondansetron/PF 4mg/2ml inj IV PRN (23:15)
[2022-10-30] MEDS ORDERED: HYDROcodone/acetaminophen 5mg/325mg tablet PO PRN (23:15)
[2022-10-30] MEDS ORDERED: potassium Cl 20 mEq SR tablet PO PRN ×2 (23:15)
[2022-10-30] MEDS ORDERED: magnesium Cl slow-release 64mg tablet PO PRN (23:15)
[2022-10-30] MEDS ORDERED: acetaminophen 325mg tablet PO PRN (23:15)
[2022-10-30] MEDS ORDERED: morphine 2 MG/ML inj. syringe IV PRN (23:15)
[2022-10-30] MEDS ORDERED: magnesium hydroxide 30ml (MOM) UD suspension PO PRN (23:15)
[2022-10-30] MEDS ORDERED: mag hydrox/Alum hydrox/simeth 30ml oral suspension PO PRN (23:15)
[2022-10-30] MEDS ORDERED: magnesium 2GM in 50ml NS 50 ML IV PRN (23:15)
[2022-10-30] MEDS ORDERED: potassium Cl 40MEQ/1/2NS 520ml 520 ML IV PRN (23:15)
[2022-10-30] MEDS ORDERED: regadenoson 0.4mg/5ml syringe IV PRN (23:40)
[2022-10-30] MEDS ORDERED: nitroGLYCERIN 0.4mg SUBLingual tab SL PRN (23:40)
[2022-10-30] MEDS ORDERED: metoprolol tartrate 1mg/ml inj IV PRN (23:40)
[2022-10-30] MEDS ORDERED: aminophylline 250mg/10ml inj. IV PRN (23:40)
[2022-10-31] MEDS ORDERED: potassium Cl 40MEQ/1/2NS 520ml 520 ML IV SCH
--- NOTE | 2022-10-31 00:17 | NUR ---
PAGER ID: [phone] MESSAGE: Admitted patient in ER Bed 2 Violet Martinez wants to leave AMA, family is at the bedside to take her home. [facility] ER [phone]
--- NOTE | 2022-10-31 00:27 | NUR ---
Patient left AMA accompanied by son. notified. Pt informed that leaving AMA has significant risks including the possibility of . Pt instructed to return if chest pain, SOB worsens and to follow up with PCP as soon as possible.
[2022-10-31] MEDS ORDERED: docusate sod 100mg capsule PO SCH (08:00)
[2022-10-31] MEDS ORDERED: K and/or MAG REPLACEMENT MC SCH (08:00)
== END 2022-10-31 00:31 | disposition left against medical advice (07) ==
LOC: ER 20:41
DX: R07.9 Chest pain, unspecified (principal); D64.9 Anemia, unspecified; R06.02 Shortness of breath; R11.2 Nausea with vomiting, unspecified; I11.0 Hypertensive heart disease with heart failure; G89.29 Other chronic pain; F32.A Depression, unspecified; Z88.8 Allergy status to other drugs, medicaments and biological substances
CPT/HCPCS: 36415; 71045; 80053; 83880; 84484; 85025; 93005; 96374; 96375; 99285; J2270; J2405

== ENCOUNTER 2023-03-25 10:57 | Emergency (ER) | payer MEDICAID ==
[~2023-03-25] VITALS: Ht 165.1 cm; Wt 54.5 kg
[~2023-03-25 10:57] MED LIST changes: +CAFF200T13 PO; -DILT30TA5 PO; -DIPH-1055 PO; +HYDR-3972 PO; -HYDR-4353 PO; +LACT1CAP26 PO; +LIDO35.4 TOP; -LOP25T PO; -LYR75C PO; +METH35.42 TOP; -NICO-631 TD; +ONDA-103 PO; -POTA-206 PO; +PRED10TA PO; +PREG100C56 PO; +PROP40TA72 PO; +TIZA-205 PO
[2023-03-25] MEDS ORDERED: magnesium 2GM in 50ml NS 50 ML IV ONE (11:05)
[2023-03-25] MEDS ORDERED: diltiazem 5mg/ml 5ml inj. IV ONE ×2 (11:10→12:50)
[2023-03-25 11:46] VITALS: O2SAT 95
[2023-03-25 12:08] VITALS: BP 156/88
[2023-03-25] MEDS ORDERED: HYDROcodone/acetaminophen 10/325mg tab PO ONE (12:10)
[2023-03-25 12:18] LABS: BASOPHILS % (AUTO) 0.4 % (0-1); EOSINOPHILS # (AUTO) 0.1 X10'3 (0-0.9); EOSINOPHILS % (AUTO) 0.8 % (0-6); HEMATOCRIT 41.3 % (35.0-45.0); HEMOGLOBIN 13.1 g/dl (12.0-16.0); LYMPHOCYTES # (AUTO) 1.3 X10'3 (1.1-4.8); LYMPHOCYTES % (AUTO) 19.1 % (21-51); MEAN CORPUSCULAR HEMOGLOBIN 28.4 PG (27.0-31.0); MEAN CORPUSCULAR HGB CONC 31.8 g/dL (33.0-36.5); MEAN CORPUSCULAR VOLUME 89.3 FL (78-98); MEAN PLATELET VOLUME 8.6 FL (7.4-10.4); MONOCYTES # (AUTO) 0.5 X10'3 (0-0.9); MONOCYTES % (AUTO) 8.2 % (2-12); NEUTROPHILS # (AUTO) 4.7 X10'3 (1.8-7.7); NEUTROPHILS % (AUTO) 71.5 % (42-75); PLATELET COUNT 212 X10'3 (140-440); RED BLOOD COUNT 4.63 X10'6 (4.20-5.60); RED CELL DISTRIBUTION WIDTH 19.3 % (11.5-14.5); WHITE BLOOD COUNT 6.6 X10'3 (4.5-11.0)
[2023-03-25 12:35] LABS: ALANINE AMINOTRANSFERASE 57 U/L (12-78); ALBUMIN 3.3 G/DL (3.4-5.0); ALBUMIN/GLOBULIN RATIO 0.8 (1.1-1.5); ALKALINE PHOSPHATASE 185 IU/L (46-116); ANION GAP 10 (8-16); ASPARTATE AMINO TRANSFERASE 29 U/L (10-37); BILIRUBIN,TOTAL 0.3 MG/DL (0.1-1.0); BLOOD UREA NITROGEN 11 MG/DL (7-18); BUN/CREATININE RATIO 20.4 (10.0-20.0); CALCIUM 8.8 MG/DL (8.5-10.1); CHLORIDE 107 MMOL/L (99-107); CREATININE 0.54 MG/DL (0.40-0.90); GLUCOSE 96 MG/DL (70-104); POTASSIUM 3.5 MMOL/L (3.5-5.1); SODIUM 143 MMOL/L (135-145); TOTAL CARBON DIOXIDE 26.4 MMOL/L (24-32); TOTAL PROTEIN 7.5 G/DL (6.4-8.2); eCRCL 93 ML/MIN; eGFR > 90 ML/MIN
[2023-03-25] MEDS ORDERED: potassium Cl 20 mEq SR tablet PO STA (12:38)
[2023-03-25 12:42] LABS: PRO BRAIN NATRIURETIC PEPTIDE 254 PG/ML (0-125)
[2023-03-25 12:46] VITALS: RESP 16
[2023-03-25] MEDS ORDERED: diltiazem 30mg tablet PO ONE (12:50)
[2023-03-25] MEDS ORDERED: normal saline 1000ML IV soln IVB ONE (12:55)
[2023-03-25 13:26] VITALS: PULSE 98
[2023-03-25 13:55] LABS: ANISOCYTOSIS 2+; ELLIPTOCYTES FEW; PLATELET ESTIMATE NORMAL; SCHISTOCYTES FEW
[2023-04-21] MEDS ORDERED: LACO100T2 PO (06:07)
[2023-04-26] MEDS ORDERED: NICO-687 TD (14:22)
== END 2023-03-25 14:45 | disposition home or self-care (01) ==
LOC: ER 10:58
DX: R00.0 Tachycardia, unspecified (principal); R00.2 Palpitations; G35 Multiple sclerosis; I25.10 Atherosclerotic heart disease of native coronary artery without angina pectoris; G89.29 Other chronic pain; F11.90 Opioid use, unspecified, uncomplicated; F17.210 Nicotine dependence, cigarettes, uncomplicated; Z56.0 Unemployment, unspecified; Z59.00 Homelessness unspecified; Z72.89 Other problems related to lifestyle; Z79.899 Other long term (current) drug therapy
CPT/HCPCS: 36415; 71045; 80053; 83880; 84145; 84484; 85008; 85025; 93005; 96361; 96365; 96375; 99285; J3475; J3490; J7030; 99284

== ENCOUNTER 2023-04-15 13:55 | Emergency (ER) | payer MEDICAID ==
[~2023-04-15] VITALS: Ht 160 cm; Wt 50.0 kg
[2023-04-15] MEDS ORDERED: HYDROcodone/acetaminophen 10/325mg tab PO ONE (14:50)
[2023-04-15] MEDS ORDERED: morphine 2 MG/ML inj. syringe IM ONE ×2 (16:30→18:10)
[2023-04-15 16:42] LABS: BASOPHILS % (AUTO) 0.3 % (0-1); EOSINOPHILS # (AUTO) 0.1 X10'3 (0-0.9); EOSINOPHILS % (AUTO) 0.6 % (0-6); HEMATOCRIT 37.8 % (35.0-45.0); HEMOGLOBIN 12.2 g/dl (12.0-16.0); LYMPHOCYTES # (AUTO) 1.1 X10'3 (1.1-4.8); LYMPHOCYTES % (AUTO) 10.1 % (21-51); MEAN CORPUSCULAR HEMOGLOBIN 28.1 PG (27.0-31.0); MEAN CORPUSCULAR HGB CONC 32.3 g/dL (33.0-36.5); MEAN CORPUSCULAR VOLUME 86.8 FL (78-98); MEAN PLATELET VOLUME 8.8 FL (7.4-10.4); MONOCYTES # (AUTO) 0.8 X10'3 (0-0.9); NEUTROPHILS # (AUTO) 8.5 X10'3 (1.8-7.7); PLATELET COUNT 227 X10'3 (140-440); RED BLOOD COUNT 4.35 X10'6 (4.20-5.60); RED CELL DISTRIBUTION WIDTH 16.6 % (11.5-14.5); WHITE BLOOD COUNT 10.5 X10'3 (4.5-11.0)
[2023-04-15 16:44] LABS: ETHANOL < 10 MG/DL (<10); MAGNESIUM 1.8 MG/DL (1.5-2.4); PRO BRAIN NATRIURETIC PEPTIDE 375 PG/ML (0-125)
[2023-04-15] MEDS ORDERED: PER5325T PO (18:19)
[2023-04-15 18:39] VITALS: BP 126/86; PULSE 88; RESP 20; TEMP 97.7; O2SAT 98
== END 2023-04-15 18:41 ==
LOC: ER 13:56
DX: S22.089A Unspecified fracture of T11-T12 vertebra, initial encounter for closed fracture (principal); R55 Syncope and collapse; I25.10 Atherosclerotic heart disease of native coronary artery without angina pectoris; I25.2 Old myocardial infarction; G89.29 Other chronic pain; F32.9 Major depressive disorder, single episode, unspecified; F10.10 Alcohol abuse, uncomplicated; F11.90 Opioid use, unspecified, uncomplicated; Z98.890 Other specified postprocedural states; Z59.00 Homelessness unspecified; Z56.0 Unemployment, unspecified; Z79.899 Other long term (current) drug therapy; W18.39XA Other fall on same level, initial encounter; Y93.89 Activity, other specified; Y92.89 Other specified places as the place of occurrence of the external cause; Y99.8 Other external cause status; Y90.9 Presence of alcohol in blood, level not specified
CPT/HCPCS: 36415; 70450; 72100; 80320; 83735; 83880; 84484; 85025; 93005; 96372; 99285; J2270

== ENCOUNTER 2023-04-15 23:13 | Emergency (ER) | payer MEDICAID ==
[~2023-04-15] VITALS: Ht 165.1 cm; Wt 59.0 kg
[~2023-04-15 23:13] MED LIST changes: +PER5325T PO
[2023-04-15 23:27] VITALS: TEMP 99.4
[2023-04-15] MEDS ORDERED: morphine 2 MG/ML inj. syringe IV PRN (23:50)
[2023-04-16] MEDS ORDERED: morphine 4 MG/ML inj SYRINge IV ONE (00:30)
[2023-04-16 01:03] LABS: BASOPHILS % (AUTO) 0.3 % (0-1); EOSINOPHILS # (AUTO) 0.1 X10'3 (0-0.9); EOSINOPHILS % (AUTO) 0.6 % (0-6); HEMOGLOBIN 12.5 g/dl (12.0-16.0); LYMPHOCYTES # (AUTO) 1.4 X10'3 (1.1-4.8); LYMPHOCYTES % (AUTO) 12.5 % (21-51); MEAN CORPUSCULAR HEMOGLOBIN 28.1 PG (27.0-31.0); MEAN CORPUSCULAR HGB CONC 32.8 g/dL (33.0-36.5); MEAN CORPUSCULAR VOLUME 85.7 FL (78-98); MEAN PLATELET VOLUME 8.5 FL (7.4-10.4); MONOCYTES % (AUTO) 8.6 % (2-12); NEUTROPHILS # (AUTO) 8.6 X10'3 (1.8-7.7); PLATELET COUNT 227 X10'3 (140-440); RED BLOOD COUNT 4.44 X10'6 (4.20-5.60); RED CELL DISTRIBUTION WIDTH 16.7 % (11.5-14.5); WHITE BLOOD COUNT 11.1 X10'3 (4.5-11.0)
[2023-04-16 01:22] LABS: ALANINE AMINOTRANSFERASE 24 U/L (12-78); ALBUMIN 2.8 G/DL (3.4-5.0); ALBUMIN/GLOBULIN RATIO 0.7 (1.1-1.5); ALKALINE PHOSPHATASE 98 IU/L (46-116); ANION GAP 5 (8-16); ASPARTATE AMINO TRANSFERASE 21 U/L (10-37); BILIRUBIN,TOTAL 0.4 MG/DL (0.1-1.0); BLOOD UREA NITROGEN 14 MG/DL (7-18); BUN/CREATININE RATIO 22.2 (10.0-20.0); CALCIUM 9.1 MG/DL (8.5-10.1); CHLORIDE 101 MMOL/L (99-107); CREATININE 0.63 MG/DL (0.40-0.90); GLUCOSE 85 MG/DL (70-104); POTASSIUM 3.4 MMOL/L (3.5-5.1); SODIUM 136 MMOL/L (135-145); TOTAL CARBON DIOXIDE 29.6 MMOL/L (24-32); TOTAL PROTEIN 6.9 G/DL (6.4-8.2); eCRCL 83 ML/MIN; eGFR > 90 ML/MIN
[2023-04-16] MEDS ORDERED: nicotine 7mg patch - 24hr TD SCH (01:55)
[2023-04-16 02:17] LABS: APTT 27 SECONDS (22-32); PROTHROMBIN TIME 10.3 SECONDS (9.0-12.0)
[2023-04-16] MEDS ORDERED: propranolol 40mg tablet PO SCH (02:55)
[2023-04-16 03:08] VITALS: BP 153/106; PULSE 161; RESP 22; O2SAT 93
[2023-04-21] MEDS ORDERED: LACO100T2 PO (06:07)
[2023-04-26] MEDS ORDERED: NICO-687 TD (14:22)
== END 2023-04-16 03:51 | disposition left against medical advice (07) ==
LOC: ER 23:14
DX: S22.088A Other fracture of T11-T12 vertebra, initial encounter for closed fracture (principal); R55 Syncope and collapse; I25.10 Atherosclerotic heart disease of native coronary artery without angina pectoris; I25.2 Old myocardial infarction; G89.29 Other chronic pain; M25.569 Pain in unspecified knee; F32.9 Major depressive disorder, single episode, unspecified; F10.10 Alcohol abuse, uncomplicated; F11.90 Opioid use, unspecified, uncomplicated; Z59.00 Homelessness unspecified; Z56.0 Unemployment, unspecified; Z88.8 Allergy status to other drugs, medicaments and biological substances; Z79.899 Other long term (current) drug therapy; W18.39XA Other fall on same level, initial encounter; Y93.89 Activity, other specified; Y92.89 Other specified places as the place of occurrence of the external cause; Y99.8 Other external cause status; Y90.9 Presence of alcohol in blood, level not specified
CPT/HCPCS: 36415; 71045; 80053; 84484; 85025; 85610; 85730; 93005; 96374; 96376; 99285; J2270; J7030

== ENCOUNTER 2023-05-18 06:45 | Emergency (ER) | payer MEDICAID ==
[~2023-05-18] VITALS: Ht 165.1 cm; Wt 47.3 kg
[~2023-05-18 06:45] MED LIST changes: +NICO-687 TD; -PER5325T PO
[2023-05-18] MEDS ORDERED: HYDROmorphone inj. 0.5 MG/0.5 ML DISP.SYRIN IV ONE ×2 (07:10→16:00)
[2023-05-18] MEDS ORDERED: ondansetron/PF 4mg/2ml inj IV ONE (07:10)
[2023-05-18] MEDS ORDERED: methylPREDNISolone sod succ 125mg/2ml vial IV ONE (07:10)
[2023-05-18] MEDS ORDERED: albuterol 2.5 MG/3 ML nebule NEB ONE (07:10)
[2023-05-18 08:27] LABS: BASOPHILS # (AUTO) 0.1 X10'3 (0-0.2); EOSINOPHILS # (AUTO) 0.3 X10'3 (0-0.9); EOSINOPHILS % (AUTO) 4.7 % (0-6); HEMATOCRIT 40.5 % (35.0-45.0); HEMOGLOBIN 13.1 g/dl (12.0-16.0); LYMPHOCYTES % (AUTO) 16.2 % (21-51); MEAN CORPUSCULAR HEMOGLOBIN 26.9 PG (27.0-31.0); MEAN CORPUSCULAR HGB CONC 32.5 g/dL (33.0-36.5); MEAN CORPUSCULAR VOLUME 82.8 FL (78-98); MONOCYTES # (AUTO) 0.7 X10'3 (0-0.9); MONOCYTES % (AUTO) 12.3 % (2-12); NEUTROPHILS # (AUTO) 3.9 X10'3 (1.8-7.7); NEUTROPHILS % (AUTO) 65.8 % (42-75); PLATELET COUNT 240 X10'3 (140-440); RED BLOOD COUNT 4.89 X10'6 (4.20-5.60); RED CELL DISTRIBUTION WIDTH 18.2 % (11.5-14.5)
[2023-05-18 08:48] LABS: ALANINE AMINOTRANSFERASE 69 U/L (12-78); ALBUMIN 3.4 G/DL (3.4-5.0); ALBUMIN/GLOBULIN RATIO 0.6 (1.1-1.5); ALKALINE PHOSPHATASE 636 IU/L (46-116); ANION GAP 13 (8-16); ASPARTATE AMINO TRANSFERASE 131 U/L (10-37); BLOOD UREA NITROGEN 14 MG/DL (7-18); BUN/CREATININE RATIO 17.1 (10.0-20.0); CALCIUM 9.4 MG/DL (8.5-10.1); CHLORIDE 103 MMOL/L (99-107); CREATININE 0.82 MG/DL (0.40-0.90); GLUCOSE 79 MG/DL (70-104); SODIUM 141 MMOL/L (135-145); TOTAL CARBON DIOXIDE 25.2 MMOL/L (24-32); TOTAL PROTEIN 9.1 G/DL (6.4-8.2); eCRCL 53 ML/MIN; eGFR 71 ML/MIN
[2023-05-18 08:52] LABS: POTASSIUM 2.6 MMOL/L (3.5-5.1)
[2023-05-18 11:33] VITALS: TEMP 97.9
[2023-05-18] MEDS ORDERED: potassium Cl 20 mEq SR tablet PO STA (16:31)
[2023-05-18 16:57] VITALS: BP 185/95; PULSE 86; O2SAT 98
[2023-05-18 17:00] VITALS: RESP 14
== END 2023-05-18 17:08 | disposition home or self-care (01) ==
LOC: ER 06:46
DX: G89.29 Other chronic pain (principal); Z20.822 Contact with and (suspected) exposure to COVID-19; M54.9 Dorsalgia, unspecified; F32.A Depression, unspecified; Z88.0 Allergy status to penicillin; Z79.899 Other long term (current) drug therapy
CPT/HCPCS: 36415; 71045; 72131; 80053; 84484; 85025; 87502; 87503; 87811; 93005; 96374; 96375; 96376; 99285; J1170; J2405; J2930